=== PATIENT | male | born 1945 | race Caucasian/White ===

== ENCOUNTER → 2016-09-09 | Outpatient (CLI) | payer BC ==
[~2016-09-09] MED LIST: CLC100 PO; MULT-506 PO; OMEG10007 PO; OXYC-57 PO; OXYSR10 PO; SENN-61 PO; VGRUNK; [UNRECOGNIZED DRUG - CODE] TOP; acidophilus
[2016-09-09 13:07] LABS: ALT/SGPT 61 U/L (12-78); AST/SGOT 43 U/L (15-37); BLOOD UREA NITROGEN 15 mg/dl (7-18); CALCIUM 8.5 mg/dl (8.5-10.1); CARBON DIOXIDE 27 mmol/L (21-32); CHLORIDE 108 mmol/L (98-107); CREATININE 0.98 mg/dl (0.60-1.40); GLUCOSE 147 mg/dl (70-99); POTASSIUM 4.4 mmol/L (3.5-5.1); SODIUM 141 mmol/L (136-145)
[2016-09-09 13:10] LABS: ALB/GLOB RATIO 0.9 (0.9-2); ALKALINE PHOSPHATASE 82 U/L (45-117); CHOLESTEROL 218 mg/dl (0-200); CHOLESTEROL/HDL RATIO 5.5; ESTIMATED AVERAGE GLUCOSE 140 mg/dl; HA1C FLAG Normal (Normal); HDL CHOLESTEROL 40 mg/dl; LDL CHOLESTEROL CALCULATED 144 mg/dl; TRIGLYCERIDES 169 mg/dl (0-150); VERY LOW DENSITY LIPOPROT CALC 34 mg/dl
== END | disposition home or self-care (01) ==
LOC: C.LABPVFM 08:18
PROVIDERS: ATTEND Nurse Practitioner Family
DX: R73.01 Impaired fasting glucose (principal); E78.5 Hyperlipidemia, unspecified

== ENCOUNTER → 2016-12-23 | Outpatient (CLI) | payer BC ==
--- NOTE | 2016-12-23 09:33 | DIAGNOSTIC IMAGING REPORT ---
RIGHT HEEL MIN 2 VIEWS CLINICAL HISTORY: Right heel pain COMPARISON: None. DISCUSSION: There are no acute fractures. There is Achilles insertional spurring with calcification of the distal Achilles tendon. There is plantar calcaneal spurring. No destructive lesions are visualized. IMPRESSION: 1. No acute fractures 2. Calcaneal spurring. Calcification of the distal Achilles tendon may indicate an Achilles tendinopathy Electronically signed by: Tutu Stephenson M.D. 12/23/2016 9:31 AM Dictated Date/Time: 12/23/2016 9:31 AM
== END | disposition home or self-care (01) ==
LOC: C.RDSM 13:15
PROVIDERS: ATTEND Physician Assistant
DX: M79.671 Pain in right foot (principal); M77.31 Calcaneal spur, right foot; M25.871 Other specified joint disorders, right ankle and foot

== ENCOUNTER → 2017-02-19 | Outpatient (CLI) | payer BC ==
[2017-02-19 13:12] LABS: ALT/SGPT 63 U/L (12-78); AST/SGOT 47 U/L (15-37); BLOOD UREA NITROGEN 16 mg/dl (7-18); CALCIUM 8.6 mg/dl (8.5-10.1); CARBON DIOXIDE 26 mmol/L (21-32); CHLORIDE 107 mmol/L (98-107); CREATININE 0.97 mg/dl (0.60-1.40); GLUCOSE 136 mg/dl (70-99); POTASSIUM 4.3 mmol/L (3.5-5.1); SODIUM 139 mmol/L (136-145)
[2017-02-19 13:14] LABS: ALKALINE PHOSPHATASE 76 U/L (45-117); CHOLESTEROL 211 mg/dl (0-200); CHOLESTEROL/HDL RATIO 5.9; HDL CHOLESTEROL 36 mg/dl; LDL CHOLESTEROL CALCULATED 138 mg/dl; TRIGLYCERIDES 187 mg/dl (0-150); VERY LOW DENSITY LIPOPROT CALC 37 mg/dl
[2017-02-19 13:17] LABS: ESTIMATED AVERAGE GLUCOSE 140 mg/dl; HA1C FLAG Normal (Normal)
== END | disposition home or self-care (01) ==
LOC: C.LABPVFM 08:24
PROVIDERS: ATTEND Nurse Practitioner Family
DX: E11.9 Type 2 diabetes mellitus without complications (principal); E78.5 Hyperlipidemia, unspecified

== ENCOUNTER → 2017-02-19 | Outpatient (CLI) | payer BC | END | disposition home or self-care (01) | LOC: C.RDSM 09:30 | PROVIDERS: ATTEND Physical Medicine & Rehabilitation Sports Medicine | DX: M17.12 Unilateral primary osteoarthritis, left knee (principal) ==

== ENCOUNTER 2017-06-20 21:26 | Emergency (ER) | payer BC, OTHER ==
[~2017-06-20] VITALS: Ht 185.4 cm; Wt 137.9 kg
[2017-06-20 21:30] VITALS: TEMP 36.8; Ht 185.4 cm; Wt 137.9 kg
[2017-06-20 22:11] LABS: BASO % 0.4 %; BASO ABS # 0.03 K/uL (0-0.2); EOS % 0.4 %; EOS ABS # 0.03 K/uL (0-0.5); HEMATOCRIT 46.3 % (42-52); HEMOGLOBIN 16.2 g/dL (14.0-18.0); IG# 0.04 K/uL (0.00-0.02); LYMPH % 10.6 %; MEAN CELL VOLUME 86.7 fL (80-100); MEAN CORPUSCULAR HEMOGLOBIN 30.3 pg (25-34); MEAN PLATELET VOLUME 9.5 fL (7.4-10.4); MONO % 4.7 %; NEUT % 83.4 %; NEUT ABS # 7.09 K/uL (1.4-6.5); PLATELET COUNT 204 K/uL (130-400); RED CELL DISTRIBUTION WIDTH CV 13.9 % (11.5-14.5); RED CELL DISTRIBUTION WIDTH SD 43.9 fL (36.4-46.3); WHITE BLOOD COUNT 8.49 K/uL (4.8-10.8)
--- NOTE | 2017-06-20 22:19 | EMERGENCY ROOM VISIT NOTE ---
History Report prepared by Tosin: Dany Melo Under the Supervision of: Dr. Kevin Elena M.D. First contact with patient: 22:07 Chief Complaint: ABDOMINAL PAIN Stated Complaint: NAUSEA,VOMITING,SHARP ABDOMINAL PAIN Nursing Triage Summary: ate a rich meal at the [facility] and got abd pain with n/v. started at 1830. States also has hx of diverticulitis History of Present Illness The patient is a 72 year old male who presents to the Emergency Room with a history of diverticulitis with complaints of sudden onset of persistent abdominal pain that started around 4 hours ago. He states that the pain came on after finishing dinner, and the pain has been worst in the left lower quadrant. He adds that the pain has been constant, but has been slowly getting better. He describes the pain as a sharp pressure, and rates the pain at worst as an 8 out of 10 in severity. The patient says the pain is not changed with position. He says that when the pain came on, he felt sweaty and feverish. The patient states that he has 1 episode of vomiting without any blood. He says that he is not currently nauseous. The patient adds that he has had a decreased volume in his stool over the past few days, which is unusual for him. He denies any chest pain, shortness of breath, diarrhea, or hematochezia. The patient states that 2 days ago, he had sharp pain with urination. He notes no history of kidney stones. The patient has no history of abdominal surgeries. Source of History: patient Onset: 4 hours ago Position: abdomen Quality: pressure, sharp Timing: other (persistent) Associated Symptoms: + fevers (felt feverish), + diaphoresis, + nausea, + vomiting, + urinary symptoms, No chest pain, No SOB, No hematochezia, No diarrhea Note: Decreased volume of stool over past few days. Review of Systems See HPI for pertinent positives and negatives. A total of ten systems were reviewed and were otherwise negative. Past Medical & Surgical Medical Problems: (1) Diverticulitis (2) Osteoarthritis Family History Family history omitted secondary to patient's advanced age. Social History Smoking Status: Never Smoker Alcohol Use: occasionally Marital Status: Occupation Status: retired Current/Historical Medications Scheduled Calcium Carbonate (Tums), 2 TABS PO PRN Fish Oil ([place]-3), 2 CAP PO DAILY Lactobacillus (Acidophilus), 1 CAP PO DAILY Melatonin (Melatonin), 10 MG PO HS Sildenafil Citrate (Viagra), 100 MG PO PRN Tamsulosin HCl (Tamsulosin HCl), 1 CAP PO DAILY Testosterone (Androderm), 2 MG TOP Q24H Testosterone (Androderm), 4 MG TOP Q24H Scheduled PRN Azelastine Hcl (Astelin Nasal [place]), 1-2 SPRAYS NA BID PRN for Nasal Congestion Naproxen (Aleve), 220 MG PO QPM PRN for Pain Allergies Coded Allergies: No Known Allergies (Unverified , 10/24/10) Physical Exam Vital Signs Date Time Temp Pulse Resp B/P (MAP) Pulse Ox O2 Delivery O2 Flow Rate FiO2 06/21/17 00:58 81 18 147/87 96 06/20/17 23:08 77 18 151/92 94 Room Air 06/20/17 21:30 36.8 71 18 190/99 92 Room Air Physical Exam GENERAL: Awake, alert, uncomfortable-appearing, in no distress HENT: Normocephalic, atraumatic. Oropharynx unremarkable. EYES: Normal conjunctiva. Sclera non-icteric. NECK: Supple. No nuchal rigidity. FROM. No JVD. RESPIRATORY: Clear to auscultation. CARDIAC: Regular rate, normal rhythm. Extremities warm and well perfused. Pulses equal. ABDOMEN: Soft, non-distended. Mild tenderness in the left flank, left lower quadrant, and suprapubic areas, no peritoneal signs. No rebound or guarding. No masses. RECTAL: Deferred. MUSCULOSKELETAL: Chest examination reveals no tenderness. The back is symmetrical on inspection without obvious abnormality. Mild tenderness in the left CVA. No joint edema. LOWER EXTREMITIES: Calves are equal size bilaterally and non-tender. No edema. No discoloration. NEURO: Normal sensorium. No sensory or motor deficits noted. SKIN: No rash or jaundice noted. Medical Decision & Procedures ER Provider Diagnostic Interpretation: CT: Radiology results as stated below per my review and radiologist interpretation CT ABDOMEN & PELVIS With Contrast: 2 mm proximal left ureteral stone with [id number] left hydronephrosis, perinephric stranding and edema. Mild degree of left nephrogram delay. Diverticulosis without diverticulitis. No bowel dilation or free air. Radiologist: Des Rome M.D. Laboratory Results 1/12/18 21:55 Red Blood Count 5.34, Mean Corpuscular Volume 86.7, Mean Corpuscular Hemoglobin 30.3, Mean Corpuscular Hemoglobin Concent 35.0, Mean Platelet Volume 9.5, Neutrophils (%) (Auto) 83.4, Lymphocytes (%) (Auto) 10.6, Monocytes (%) (Auto) 4.7, Eosinophils (%) (Auto) 0.4, Basophils (%) (Auto) 0.4, Neutrophils # (Auto) 7.09, Lymphocytes # (Auto) 0.90, Monocytes # (Auto) 0.40, Eosinophils # (Auto) 0.03, Basophils # (Auto) 0.03 06/20/17 21:55 Test 06/20/17 21:55 06/20/17 22:45 06/20/17 23:08 White Blood Count 8.49 K/uL (4.8-10.8) Red Blood Count 5.34 M/uL (4.7-6.1) Hemoglobin 16.2 g/dL (14.0-18.0) Hematocrit 46.3 % (42-52) Mean Corpuscular Volume 86.7 fL (80-100) Mean Corpuscular Hemoglobin 30.3 pg (25-34) Mean Corpuscular Hemoglobin Concent 35.0 g/dl (32-36) Platelet Count 204 K/uL (130-400) Mean Platelet Volume 9.5 fL (7.4-10.4) Neutrophils (%) (Auto) 83.4 % Lymphocytes (%) (Auto) 10.6 % Monocytes (%) (Auto) 4.7 % Eosinophils (%) (Auto) 0.4 % Basophils (%) (Auto) 0.4 % Neutrophils # (Auto) 7.09 K/uL (1.4-6.5) Lymphocytes # (Auto) 0.90 K/uL (1.2-3.4) Monocytes # (Auto) 0.40 K/uL (0.11-0.59) Eosinophils # (Auto) 0.03 K/uL (0-0.5) Basophils # (Auto) 0.03 K/uL (0-0.2) RDW Standard Deviation 43.9 fL (36.4-46.3) RDW Coefficient of Variation 13.9 % (11.5-14.5) Immature Granulocyte % (Auto) 0.5 % Immature Granulocyte # (Auto) 0.04 K/uL (0.00-0.02) Anion Gap 9.0 mmol/L (3-11) Est Creatinine Clear Calc Drug Dose 97.3 ml/min Estimated GFR () 84.9 Estimated GFR (Non- 73.3 BUN/Creatinine Ratio 13.2 (10-20) Calcium Level 8.8 mg/dl (8.5-10.1) Total Bilirubin 0.4 mg/dl (0.2-1) Aspartate Amino Transf (AST/SGOT) 41 U/L (15-37) Alanine Aminotransferase (ALT/SGPT) 67 U/L (12-78) Alkaline Phosphatase 78 U/L (45-117) Total Protein 7.6 gm/dl (6.4-8.2) Albumin 3.8 gm/dl (3.4-5.0) Globulin 3.8 gm/dl (2.5-4.0) Albumin/Globulin Ratio 1.0 (0.9-2) Lipase 293 U/L (73-393) Urine Color YELLOW Urine Appearance CLEAR (CLEAR) Urine pH 7.0 (4.5-7.5) Urine Specific [place] 1.015 (1.000-1.030) Urine Protein NEG (NEG) Urine Glucose (UA) NEG (NEG) Urine Ketones NEG (NEG) Urine Occult Blood 3+ (NEG) Urine Nitrite NEG (NEG) Urine Bilirubin NEG (NEG) Urine Urobilinogen NEG (NEG) Urine Leukocyte Esterase NEG (NEG) Urine WBC (Auto) 0 /hpf (0-5) Urine RBC (Auto) >30 /hpf (0-4) Urine Hyaline Casts (Auto) 1-5 /lpf (0-5) Urine Epithelial Cells (Auto) 0-5 /lpf (0-5) Urine Bacteria (Auto) NEG (NEG) Lactic Acid Level 1.6 mmol/L (0.4-2.0) Laboratory results reviewed by me Medications Administered Medications (Trade) Dose Ordered Sig/Jumana Route Start Time Stop Time Status Last Admin Dose Admin Sodium Chloride 1,000 ml @ 999 mls/hr Q1H1M IV 06/20/17 22:45 06/21/17 01:12 DC 06/20/17 23:46 999 MLS/HR Ketorolac Tromethamine (Toradol Inj) 30 mg STK-MED ONCE .ROUTE 06/20/17 22:43 06/20/17 22:44 DC 06/20/17 22:46 15 MG Ondansetron HCl (Zofran Inj) 4 mg NOW STAT IV 06/20/17 23:15 06/20/17 23:21 DC 06/20/17 23:26 4 MG Fentanyl Citrate (Fentanyl Inj) 50 mcg NOW ONCE IV 06/20/17 23:15 06/20/17 23:21 DC 06/20/17 23:27 50 MCG Ondansetron HCl (ZOFRAN ODT 4MG Home Pack) 1 homepack STK-MED ONCE .ROUTE 06/21/17 00:47 06/21/17 00:48 DC 06/21/17 00:53 1 HOMEPACK Oxycodone HCl (Roxicodone Immediate Rel 5MG Home Pack) 1 homepack STK-MED ONCE PO 06/21/17 00:47 06/21/17 00:48 DC 06/21/17 00:53 1 HOMEPACK ED Course 2214: The patient was evaluated in room C6 by the resident, Dr. Doran. A complete history and physical exam was performed. 2247: The patient was evaluated in room C6. A complete history and physical exam was performed. 0045: The patient was reevaluated and he is resting comfortably. Discussed results and discharge instructions: he verbalized understanding and agreement. The patient is ready for discharge. Medical Decision I reviewed the patient's past medical history, medications, and the nursing notes as described above. Differential diagnosis: Etiologies such as appendicitis, diverticulitis, PUD, biliary pathology, UTI, pancreatitis, obstruction, mesenteric ischemia, aortic pathology, infections, inflammatory bowel disease, renal colic, as well as others were entertained. The patient is 72 y/o gentleman with a pmhx of diverticulitis who presents to the emergency department with left flank pain occurring earlier today with associated n/v per HPI. On arrival the patient is uncomfortable but in NAD, AFVSS. Mild left flank, LLQ ttp. No peritoneal signs. Labs unremarkable including wbc and lactate wnl and UA negative for infection. CT demonstrates 2mm renal stone with associated hydronephrosis likely cause of patient's sx. Improved after IVF and analgesia. Findings and plan for follow-up reviewed with patient. Patient agreeable and d/c'd per discharge instructions. I discussed the case with the resident physician, examined the patient, and agree with the findings and plan as documented in the residents note unless otherwise clarified here by me. Medication Reconcilliation Current Medication List: was personally reviewed by me Blood Pressure Screening Patient's blood pressure: Elevated blood pressure Blood pressure disposition: Elevated BP felt to be situational Impression Primary Impression: Kidney stone on left side Scribe Attestation The scribe's documentation has been prepared under my direction and personally reviewed by me in its entirety. I confirm that the note above accurately reflects all work, treatment, procedures, and medical decision making performed by me. Departure Information Dispostion Home / Self-Care Prescriptions Tamsulosin HCl (Tamsulosin HCl) 0.4 Mg Cap 1 CAP PO DAILY for 7 Days, #7 CAP Prov: Freddy Doran M.D. 06/21/17 Referrals No Doctor, Assigned (PCP) Patient Instructions My [facility] Additional Instructions You came to [facility] emergency department due to left sided abdominal pain, nausea and vomiting. We checked a number of blood tests, including the function of your liver, pancreas and kidneys. These all came back normal. Your CT scan showed that you have a 2mm left sided kidney stone. We have prescribed a medication called tamsulosin, to help relax the ureteral muscle and aid in passing the stone. We recommend you drink plenty of fluids - 1/2 ounce to 1 ounce per kg per day to help flush out the stone. We have also prescribed zofran and some pain medication to help with your symptoms in the meantime. Please follow up with your primary care doctor. If you experience worsening pain , fever, chills, worsening nausea and vomiting, please seek medical attention.
[2017-06-20 22:32] LABS: ALBUMIN 3.8 gm/dl (3.4-5.0); CALCIUM 8.8 mg/dl (8.5-10.1); CREATININE 1.03 mg/dl (0.60-1.40); POTASSIUM 3.8 mmol/L (3.5-5.1)
[2017-06-20] MEDS ORDERED: TEST1DIS TOP (22:32)
[2017-06-20] MEDS ORDERED: NAPR1TAB9 PO (22:32)
[2017-06-20] MEDS ORDERED: SILD100T PO (22:32)
[2017-06-20] MEDS ORDERED: TEST0.05 TOP (22:32)
[2017-06-20] MEDS ORDERED: LACTCAP3 PO (22:32)
[2017-06-20] MEDS ORDERED: ASTN (22:32)
[2017-06-20] MEDS ORDERED: OMEG10007 PO (22:32)
[2017-06-20] MEDS ORDERED: CALC500C3 PO (22:32)
[2017-06-20] MEDS ORDERED: MELA5CAP PO (22:32)
[2017-06-20 22:35] LABS: TOTAL PROTEIN 7.6 gm/dl (6.4-8.2)
[2017-06-20] MEDS ORDERED: KETOROLAC TROMETHAMINE 30 MG/ML VIAL ONE (22:43)
[2017-06-20] MEDS ORDERED: OPTIRAY 320 IV PRN (22:45)
[2017-06-20] MEDS: SODIUM CHLORIDE 0.9% 1000ML 1,000 ML IV SCH ×2 (22:45→23:46)
[2017-06-20] MEDS ORDERED: KETOROLAC TROMETHAMINE 15 MG/ML VIAL IV ONE (22:45)
--- NOTE | 2017-06-20 22:47 | EMERGENCY ROOM VISIT NOTE ---
History First contact with patient: 22:07 Chief Complaint: ABDOMINAL PAIN Stated Complaint: NAUSEA,VOMITING,SHARP ABDOMINAL PAIN Nursing Triage Summary: ate a rich meal at the [employer] and got abd pain with n/v. started at 1830. States also has hx of diverticulitis History of Present Illness The patient is a 72 year old male who presents to the Emergency Room with complaints of sudden onset LLQ pain that began at 1830 after he finished his dinner. He reports the pain is a sharp constant pressure, that is 8.5/10 in severity, and radiating to his left flank. He notes the pain has improved slightly since its onset. When the pain began, he notes he was sweating and felt feverish, and that he also had an episode of vomiting undigested food, no blood. He denies any relation of the pain to position. His LBM was this morning , although he states that today and yesterday his BMs have been smaller in volume than normal. He denies the presence of blood in his stool. He has a history of diverticulitis, with his last episode occurring 20 years ago. He denies CP, SOB, past abdominal surgeries, or kidney stones. He states 2 days ago, he had a sharp painful sensation whilst urinating, but has not had any problems since. Review of Systems See HPI for pertinent positives & negatives. A total of 10 systems reviewed and were otherwise negative. Past Medical/Surgical History Medical Problems: (1) Diverticulitis (2) Osteoarthritis Social History Smoking Status: Never Smoker Alcohol Use: occasionally Marital Status: Occupation Status: retired Current/Historical Medications Scheduled Calcium Carbonate (Tums), 2 TABS PO PRN Fish Oil ([place]-3), 2 CAP PO DAILY Lactobacillus (Acidophilus), 1 CAP PO DAILY Melatonin (Melatonin), 10 MG PO HS Sildenafil Citrate (Viagra), 100 MG PO PRN Tamsulosin HCl (Tamsulosin HCl), 1 CAP PO DAILY Testosterone (Androderm), 2 MG TOP Q24H Testosterone (Androderm), 4 MG TOP Q24H Scheduled PRN Azelastine Hcl (Astelin Nasal [place]), 1-2 SPRAYS NA BID PRN for Nasal Congestion Naproxen (Aleve), 220 MG PO QPM PRN for Pain Physical Exam Vital Signs Date Time Temp Pulse Resp B/P (MAP) Pulse Ox O2 Delivery O2 Flow Rate FiO2 1/12/18 23:08 77 18 151/92 94 Room Air 06/20/17 21:30 36.8 71 18 190/99 92 Room Air Physical Exam HEENT: Head - normocephalic and atraumatic. Mouth - dry buccal mucosa. Oropharynx is nonerythematous and there is no tonsillar exudate or edema noted. Neck: Supple; no JVD, nuchal rigidity, cervical lymphadenopathy, or auscultated bruits. Heart: Regular rate and rhythm. There is a normal S1 and S2 with no murmurs, clicks, or gallops appreciated. Lungs: Clear to auscultation bilaterally with no wheezes, rales, or rhonchi. Abdomen: Soft, tender over LLQ and flank, distended, with good bowel sounds. There are no palpable pulsatile masses or hepatosplenomegaly. There is no guarding, rigidity, or rebound noted. Extremities: No evidence of cyanosis, clubbing, or edema. There are easily palpable peripheral pulses. Neuro:The patient is awake and alert, oriented to day, time, and place. Medical Decision & Procedures Laboratory Results 06/20/17 21:55 Red Blood Count 5.34, Mean Corpuscular Volume 86.7, Mean Corpuscular Hemoglobin 30.3, Mean Corpuscular Hemoglobin Concent 35.0, Mean Platelet Volume 9.5, Neutrophils (%) (Auto) 83.4, Lymphocytes (%) (Auto) 10.6, Monocytes (%) (Auto) 4.7, Eosinophils (%) (Auto) 0.4, Basophils (%) (Auto) 0.4, Neutrophils # (Auto) 7.09, Lymphocytes # (Auto) 0.90, Monocytes # (Auto) 0.40, Eosinophils # (Auto) 0.03, Basophils # (Auto) 0.03 06/20/17 21:55 Test 06/20/17 21:55 06/20/17 22:45 06/20/17 23:08 White Blood Count 8.49 K/uL (4.8-10.8) Red Blood Count 5.34 M/uL (4.7-6.1) Hemoglobin 16.2 g/dL (14.0-18.0) Hematocrit 46.3 % (42-52) Mean Corpuscular Volume 86.7 fL (80-100) Mean Corpuscular Hemoglobin 30.3 pg (25-34) Mean Corpuscular Hemoglobin Concent 35.0 g/dl (32-36) Platelet Count 204 K/uL (130-400) Mean Platelet Volume 9.5 fL (7.4-10.4) Neutrophils (%) (Auto) 83.4 % Lymphocytes (%) (Auto) 10.6 % Monocytes (%) (Auto) 4.7 % Eosinophils (%) (Auto) 0.4 % Basophils (%) (Auto) 0.4 % Neutrophils # (Auto) 7.09 K/uL (1.4-6.5) Lymphocytes # (Auto) 0.90 K/uL (1.2-3.4) Monocytes # (Auto) 0.40 K/uL (0.11-0.59) Eosinophils # (Auto) 0.03 K/uL (0-0.5) Basophils # (Auto) 0.03 K/uL (0-0.2) RDW Standard Deviation 43.9 fL (36.4-46.3) RDW Coefficient of Variation 13.9 % (11.5-14.5) Immature Granulocyte % (Auto) 0.5 % Immature Granulocyte # (Auto) 0.04 K/uL (0.00-0.02) Anion Gap 9.0 mmol/L (3-11) Est Creatinine Clear Calc Drug Dose 97.3 ml/min Estimated GFR () 84.9 Estimated GFR (Non- 73.3 BUN/Creatinine Ratio 13.2 (10-20) Calcium Level 8.8 mg/dl (8.5-10.1) Total Bilirubin 0.4 mg/dl (0.2-1) Aspartate Amino Transf (AST/SGOT) 41 U/L (15-37) Alanine Aminotransferase (ALT/SGPT) 67 U/L (12-78) Alkaline Phosphatase 78 U/L (45-117) Total Protein 7.6 gm/dl (6.4-8.2) Albumin 3.8 gm/dl (3.4-5.0) Globulin 3.8 gm/dl (2.5-4.0) Albumin/Globulin Ratio 1.0 (0.9-2) Lipase 293 U/L (73-393) Urine Color YELLOW Urine Appearance CLEAR (CLEAR) Urine pH 7.0 (4.5-7.5) Urine Specific [place] 1.015 (1.000-1.030) Urine Protein NEG (NEG) Urine Glucose (UA) NEG (NEG) Urine Ketones NEG (NEG) Urine Occult Blood 3+ (NEG) Urine Nitrite NEG (NEG) Urine Bilirubin NEG (NEG) Urine Urobilinogen NEG (NEG) Urine Leukocyte Esterase NEG (NEG) Urine WBC (Auto) 0 /hpf (0-5) Urine RBC (Auto) >30 /hpf (0-4) Urine Hyaline Casts (Auto) 1-5 /lpf (0-5) Urine Epithelial Cells (Auto) 0-5 /lpf (0-5) Urine Bacteria (Auto) NEG (NEG) Lactic Acid Level 1.6 mmol/L (0.4-2.0) Medications Administered Medications (Trade) Dose Ordered Sig/Jumana Route Start Time Stop Time Status Last Admin Dose Admin Sodium Chloride 1,000 ml @ 999 mls/hr Q1H1M IV 06/20/17 22:45 07/20/17 22:44 06/20/17 23:46 999 MLS/HR Ketorolac Tromethamine (Toradol Inj) 30 mg STK-MED ONCE .ROUTE 06/20/17 22:43 06/20/17 22:44 DC 06/20/17 22:46 15 MG Ondansetron HCl (Zofran Inj) 4 mg NOW STAT IV 06/20/17 23:15 06/20/17 23:21 DC 06/20/17 23:26 4 MG Fentanyl Citrate (Fentanyl Inj) 50 mcg NOW ONCE IV 06/20/17 23:15 06/20/17 23:21 DC 06/20/17 23:27 50 MCG ED Course 22:15: The patient was evaluated in room C6. A complete history and physical exam was performed. 22:30: The case was discussed with the attending, Dr. Elena. 22:36: 15mg IV Toradol and 1L IV NS bolus ordered 23:22: 4mg IV Zofran and 50mcg IV fentanyl ordered 23:38: Patient was reassessed. He states his pain and nausea are improving. 00:30: The CT scan findings were discussed with the patient. His and his 's questions were answered. They were agreeable to discharge w/zofran and oxycodone home packs. Medical Decision Etiologies such as diverticulitis, ischemic colitis, gastroenteritis, inflammatory bowel disease, malignancy, kidney stone, UTI, gastritis, as well as others were entertained. The patient is a 72 year old male who presents to the Emergency Room with complaints of sudden onset LLQ pain that began at 1830 after he finished his dinner. His CBC, CMP and lipase were unremarkable. UA did show the presence of blood, but no signs of infection. His CT scan revealed a 2mm proximal left ureteral stone with mild to moderate left hydronephrosis, perinephric stranding and edema. He was treated with IV fluids, toradol and fentanyl for pain relief and zofran for nausea. His CT findings were discussed with him and he was discharged home and counselled on following up with his PCP. His stone is not very large, but given the obstruction, he was prescribed tamsulosin to help with passing the stone, and also counselled on drinking plenty of fluids. He was given a zofran and oxycodone home pack as well. Impression Primary Impression: Kidney stone on left side Departure Information Dispostion Home / Self-Care Prescriptions Tamsulosin HCl (Tamsulosin HCl) 0.4 Mg Cap 1 CAP PO DAILY for 7 Days, #7 CAP Prov: Freddy Doran M.D. 06/21/17 Referrals No Doctor, Assigned (PCP) Patient Instructions My [facility] Additional Instructions You came to [facility] emergency department due to left sided abdominal pain, nausea and vomiting. We checked a number of blood tests, including the function of your liver, pancreas and kidneys. These all came back normal. Your CT scan showed that you have a 2mm left sided kidney stone. We have prescribed a medication called tamsulosin, to help relax the ureteral muscle and aid in passing the stone. We recommend you drink plenty of fluids - 1/2 ounce to 1 ounce per kg per day to help flush out the stone. We have also prescribed zofran and some pain medication to help with your symptoms in the meantime. Please follow up with your primary care doctor. If you experience worsening pain , fever, chills, worsening nausea and vomiting, please seek medical attention. Resident Tracking Resident Involvement: Resident Care Provided Care Provided: Adult ED
[2017-06-20] MEDS ORDERED: ONDANSETRON INJ 2 MG/ML 2 ML VIAL IV STA (23:15)
[2017-06-20] MEDS ORDERED: FENTANYL CITRATE INJ 50 MCG/1 ML 2 ML VIAL IV ONE (23:15)
[2017-06-21] MEDS ORDERED: FLM4 PO ×2 (00:34→00:39)
[2017-06-21] MEDS ORDERED: OXYCODONE IR HOME PACK PO ONE ×2 (00:45→00:47)
[2017-06-21] MEDS ORDERED: ONDANSETRON HOME PACK 4MG OD TAB PO ONE (00:45)
[2017-06-21] MEDS ORDERED: ONDANSETRON HOME PACK 4MG OD TAB ONE (00:47)
[2017-06-21 00:58] VITALS: BP 147/87; PULSE 81; O2SAT 96
--- NOTE | 2017-06-21 05:26 | DIAGNOSTIC IMAGING REPORT ---
ABD/PELVIS IV CONTRAST ONLY CT DOSE: 1613.00 mGy.cm HISTORY: Pain llq pain, hx of diverticulitis TECHNIQUE: Multiaxial CT images of the abdomen and pelvis were performed following the use of intravenous contrast. A dose lowering technique was utilized adhering to the principles of ALARA. COMPARISON STUDY: None. FINDINGS: The lung bases are clear. The liver, spleen, gallbladder, pancreas,, and adrenal glands are within normal limits. No bowel wall thickening or obstruction. The pelvic organs are unremarkable. No suspicious lytic or blastic osseous lesions. Mild left hydroureteronephrosis. 2 mm proximal left ureteral calculus. Chronic sigmoid diverticulosis. No evidence for acute diverticulitis. IMPRESSION: 1. 2 mm obstructing calculus proximal left ureter.. 2. Mild left hydroureteronephrosis. 3. Chronic sigmoid diverticulosis. The above report was generated using voice recognition software. It may contain grammatical, syntax or spelling errors. Electronically signed by: Tray Watson M.D. 06/21/2017 5:24 AM Dictated Date/Time: 06/21/2017 5:23 AM
== END 2017-06-21 00:59 | disposition home or self-care (01) ==
LOC: C.EDB 21:29 → C.EDC 06-21 00:59
DX: N13.1 Hydronephrosis with ureteral stricture, not elsewhere classified (principal); K57.92 Diverticulitis of intestine, part unspecified, without perforation or abscess without bleeding; M19.90 Unspecified osteoarthritis, unspecified site; Z79.899 Other long term (current) drug therapy

== ENCOUNTER → 2017-06-26 | Outpatient (CLI) | payer OTHER ==
[~2017-06-26] MED LIST changes: +ASTN; +CALC500C3 PO; -CLC100 PO; +FLM4 PO; +LACTCAP3 PO; +MELA5CAP PO; -MULT-506 PO; +NAPR1TAB9 PO; -OXYC-57 PO; -OXYSR10 PO; -SENN-61 PO; +SILD100T PO; +TEST0.05 TOP; +TEST1DIS TOP; -VGRUNK; -[UNRECOGNIZED DRUG - CODE] TOP; -acidophilus
== END | disposition home or self-care (01) ==
LOC: C.LABPVFM 09:03
PROVIDERS: ATTEND Nurse Practitioner Family
DX: N20.0 Calculus of kidney (principal)

== ENCOUNTER 2021-09-03 15:40 | Inpatient (IN) ==
[2021-09-03] MEDS ORDERED: SODIUM CHLORIDE 0.9% 1000ML 1,000 ML IV ONE (16:12)
[2021-09-03] MEDS ORDERED: OPTIRAY 320 100ml IV ONE (16:36)
[2021-09-03 16:37] LABS: Basophils # (auto) 0.02 K/uL (0-0.2); Basophils % (auto) 0.2 %; Eosinophils # (auto) 0.01 K/uL (0-0.5); Eosinophils % (auto) 0.1 %; Hematocrit (blood only) 37.7 % (42-52); Hemoglobin 12.9 g/dL (14.0-18.0); Immature Granulocytes # (auto) 0.03 K/uL (0.00-0.02); Immature Granulocytes % (auto) 0.3 %; Lymphocytes # (auto) 0.82 K/uL (1.2-3.4); Lymphocytes % (auto) 9.5 %; Mean Corpuscular Hgb Conc 34.2 g/dL (32-36); Mean Platelet Volume 11.3 fL (7.4-10.4); Monocytes # (auto) 0.63 K/uL (0.11-0.59); Monocytes % (auto) 7.3 %; Neutrophils % (auto) 82.6 %; Platelet Count 233 K/uL (130-400); RDW Coefficient of Variation 15.3 % (11.5-14.5); RDW Standard Deviation 45.9 fL (36.4-46.3); White Blood Count 8.61 K/uL (4.8-10.8)
--- NOTE | 2021-09-03 16:44 | Emergency Department Note ---
Impression & Plan Pancreatic mass, Elevated bilirubin, Transaminitis, Acute hyperglycemia ED Provider Note NAME: CHAMP VILLARREAL AGE: 76 SEX: M : 1945 ARRIVES VIA: Walk-In INFORMANT: Patient ED PROVIDER(S): Russell Smith DO CHIEF COMPLAINT: elevated Lfts and Bilirubin HPI: Patient is a 76-year-old male with a past medical history of aortic stenosis, heart murmur, diabetes, hyperlipidemia who presents the ER for abdominal pain. Patient started with epigastric abdominal pain back in June. Was placed on meloxicam and had worsening symptoms and blood in the stool. Meloxicam was stopped. He had about a 30 pound weight loss. has noticed that he has become more jaundiced over the past month. Still has the epigastric abdominal pain but bright red blood per rectum has resolved. Denies any headache or change in vision. No chest pain or shortness of breath. No nausea, vomiting, or diarrhea. No dysuria, urgency, or frequency. Has an extensive family history of gastric cancer. ROS: See above HPI for pertinent positives & negatives. A total of 10 systems reviewed and were otherwise negative. PAST MEDICAL HISTORY:See Below PAST SURGICAL HISTORY:See Below FAMILY HISTORY:See Below SOCIAL HISTORY:See Below HOME MEDICATIONS:See Below ALLERGIES:See Below VITALS:See Below PHYSICAL EXAMINATION: GENERAL: Sitting up in bed, alert, well appearing, well nourished, no distress, non-toxic EYE EXAM: normal conjunctiva. OROPHARYNX: mucous membranes are moist LUNGS: Clear to auscultation. Normal chest wall mechanics HEART: no murmurs, S1 normal and S2 normal ABDOMEN: abdomen soft, non-tender, normo-active bowel sounds, no masses, no rebound or guarding. UPPER EXTREMITIES: upper extremities are grossly normal. LOWER EXTREMITIES: No pitting edema. NEURO EXAM: Normal sensorium, cranial nerves II-XII grossly intact, normal speech, no gross weakness of arms, no gross weakness of legs. MEDICAL DECISION MAKING: Patient is a 76-year-old male who presents the ER for the above-stated complaint. IV was established blood was obtained. Labs show no significant leukocytosis and mild anemia 12.9. INR was 1.3. BMP with a glucose of 580. LFTs with a transaminitis in 203 100. T bili up at 8.5. Lipase was unremarkable. UA with bilirubin. CT abdomen pelvis was obtained and showed a large pancreatic mass with metastatic disease to the liver. Discussed with Dr. Stratton from [facility]. He does not perform stenting and recommended discussed with case here. Discussed with Abelardo Gurrola for admission. Triage Nursing notes reviewed. Limited review of prior medical records performed Vital Signs: reviewed and remarkable for HTN Differential diagnosis: Differential diagnoses includes but is not limited to gastritis, peptic ulcer disease, GERD, gallbladder disease, pancreatitis, small bowel obstruction, acute coronary syndrome, pericarditis, ischemic bowel, irritable bowel disease, irritable bowel syndrome, appendicitis, diverticulitis, malignancy, hernia, u rinary tract infection, torsion, /ectopic (if female), perforation, trauma, infectious. ER treatment provided: See below Diagnostics interpreted by me: ECG: none Cardiac Monitoring: An order was placed for continuous cardiac monitoring. The monitor shows a rate of 72 with sinus rhythm. Laboratory studies: As stated above and show below. Imaging studies: CT abdomen pelvis as described above Consultation(s): none Procedures: none Critical Care: None Past Med/Surg History Medical History (Updated 09/03/21 @ 19:40 by Russell Smith DO) Heart murmur Lumbar facet arthropathy Surgical History Hx of total knee replacement Family History Father Prostate cancer Myocardial infarction Denies family history of Ovarian cancer Breast cancer Colorectal cancer Social History Smoking Status: Never smoker Second Hand Exposure: No; Hx Alcohol Use: No Hx Substance Use: No Preferred Language: Hungarian Communication Ability: Effective Visual Impairment: No Limitations Hearing Ability: Normal Ambulance Mechanic Required: No Beliefs That Will Affect Care: None marital status: Current Living Situation: Spouse current occupational status: retired Other Information That Helps Us Care for You: No Feels Safe at Home: Yes Safety Concerns: Feels Safe At This Time Childhood Exposure to Second-Hand Smoke: No caffeine: Yes (Pepsi) Dental Care, Regularly: Yes Physical Activity Frequency: 1-2 Times per Week Seatbelt Use: always Sunscreen Use: No Assistive Devices: Glasses Allergies Allergies Allergy/AdvReac Type Severity Reaction Status Date / Time No Known Allergies Allergy Verified 09/03/21 16:25 Home Meds Home Medications Medication Instructions Recorded Confirmed omega-3 fatty acids 1,000 mg 2,000 mg PO HS cap 03/02/19 09/03/21 capsule (Fish Oil Concentrate) ascorbic acid (vitamin C) 500 mg 500 mg PO HS tab 10/04/20 09/03/21 tablet (Vitamin C) cholecalciferol (vitamin D3) 25 25 mcg PO HS cap 10/04/20 09/03/21 mcg (1,000 unit) capsule (Vitamin D3) acetaminophen 650 mg 650 mg PO DAILY PRN tab 05/31/21 09/03/21 tablet,extended release (Tylenol Arthritis Pain) azelastine 137 mcg (0.1 %) nasal 1 spray INTRANASAL BID PRN 09/03/21 09/03/21 spray aerosol Previous Rx's Medication Instructions Recorded metformin 500 mg tablet,extended 500 mg PO BID #60 tab 02/19/21 release 24 hr testosterone 4 mg/24 hr 1 patch TD HS #30 ea 04/05/21 transdermal 24 hour patch atorvastatin 20 mg tablet 20 mg PO DAILY #90 tab 05/31/21 Results & Data (ED) Vital Signs Vital Signs - 24 hr 09/03/21 15:46 09/03/21 16:26 09/03/21 19:14 Temperature 36.7 C 36.9 C Temperature Source Temporal Artery Scan Oral Pulse Rate 81 85 Pulse Rate [Apical] 79 79 Pulse Rhythm Regular Regular Pulse Strength Normal Respiratory Rate 20 20 18 Respiratory Effort / Characteristics Non-Labored Spontaneous Respiratory Depth Normal Respiratory Pattern Regular Blood Pressure 152/96 H Blood Pressure [Right Arm] 158/92 H 141/81 H Blood Pressure Mean 114 Blood Pressure Mean [Right Arm] 114 101 Blood Pressure Position Sitting Pulse Oximetry 95 96 98 Oxygen Delivery Method Room Air Room Air Room Air Sepsis Recent Fever Within 48 Hours No Sepsis New/Unexplained Change in Mental Status N/A Sepsis Action Taken by Nursing No Action Required Laboratory Data Result diagrams: 09/03/21 16:22 09/03/21 16:22 Lab Results 09/03/21 09/03/21 09/03/21 Range/Units 16:14 16:22 16:22 WBC 8.61 (4.8-10.8) K/uL RBC 4.60 L (4.7-6.1) M/uL Hgb 12.9 L (14.0-18.0) g/dL Hct 37.7 L (42-52) % MCV 82.0 (80-100) fL MCH 28.0 (25-34) pg MCHC 34.2 (32-36) g/dL RDW Std Deviation 45.9 (36.4-46.3) fL RDW Coeff of Radhika 15.3 H (11.5-14.5) % Plt Count 233 (130-400) K/uL MPV 11.3 H (7.4-10.4) fL Immature Gran % (Auto) 0.3 % Neut % (Auto) 82.6 % Lymph % (Auto) 9.5 % [place] % (Auto) 7.3 % Eos % (Auto) 0.1 % Baso % (Auto) 0.2 % Neut # (Auto) 7.10 H (1.4-6.5) K/uL Lymph # (Auto) 0.82 L (1.2-3.4) K/uL [place] # (Auto) 0.63 H (0.11-0.59) K/uL Eos # (Auto) 0.01 (0-0.5) K/uL Baso # (Auto) 0.02 (0-0.2) K/uL Immature Gran # (Auto) 0.03 H (0.00-0.02) K/uL PT (9.0-12.0) Seconds INR (0.9-1.1) Sodium 132 L (136-145) mmol/L Potassium 3.7 (3.5-5.1) mmol/L Chloride 97 L (98-107) mmol/L Carbon Dioxide 23 (21-32) mmol/L Anion Gap 12 H (3-11) BUN 11 (6-23) mg/dl Creatinine 0.71 (0.6-1.4) mg/dl Est Cr Clr Drug Dosing 121.8 ml/min Est GFR ( Amer) 107.1 ml/min Est GFR (Non-Af Amer) 92.4 ml/min BUN/Creatinine Ratio 15.5 (10-20) Glucose 582 H* (70-99(Fasting)) mg/dl POC Glucose (70-99) mg/dl Calcium 9.1 (8.5-10.1) mg/dl Total Bilirubin 8.5 H (0.2-1.0) mg/dl AST 208 H (13-39) U/L ALT 314 H (7-52) U/L Alkaline Phosphatase 573 H (34-104) U/L Total Protein 6.3 (6.0-8.3) gm/dl Albumin 3.4 (3.4-5.0) gm/dl Globulin 2.9 (2.5-4.0) gm/dl Albumin/Globulin Ratio 1.2 (0.9-2) Lipase 62 (11-82) U/L Urine Color Dark Yellow Urine Appearance Clear (Clear) Urine pH 6.0 (4.5-7.5) Ur Specific [place] 1.040 H (1.000-1.030) Urine Protein Negative (Negative) Urine Glucose (UA) 3+ H (Negative) Urine Ketones 1+ H (Negative) Urine Blood Negative (Negative) Urine Nitrite Negative (Negative) Urine Bilirubin 1+ H (Negative) Urine Urobilinogen Negative (Negative) Ur Leukocyte Esterase Negative (Negative) SARS-CoV-2, RNA, NAAT (NEGATIVE) 09/03/21 09/03/21 09/03/21 Range/Units 16:22 16:56 17:47 WBC (4.8-10.8) K/uL RBC (4.7-6.1) M/uL Hgb (14.0-18.0) g/dL Hct (42-52) % MCV (80-100) fL MCH (25-34) pg MCHC (32-36) g/dL RDW Std Deviation (36.4-46.3) fL RDW Coeff of Radhika (11.5-14.5) % Plt Count (130-400) K/uL MPV (7.4-10.4) fL Immature Gran % (Auto) % Neut % (Auto) % Lymph % (Auto) % [place] % (Auto) % Eos % (Auto) % Baso % (Auto) % Neut # (Auto) (1.4-6.5) K/uL Lymph # (Auto) (1.2-3.4) K/uL [place] # (Auto) (0.11-0.59) K/uL Eos # (Auto) (0-0.5) K/uL Baso # (Auto) (0-0.2) K/uL Immature Gran # (Auto) (0.00-0.02) K/uL PT 13.3 H (9.0-12.0) Seconds INR 1.3 H (0.9-1.1) Sodium (136-145) mmol/L Potassium (3.5-5.1) mmol/L Chloride (98-107) mmol/L Carbon Dioxide (21-32) mmol/L Anion Gap (3-11) BUN (6-23) mg/dl Creatinine (0.6-1.4) mg/dl Est Cr Clr Drug Dosing ml/min Est GFR ( Amer) ml/min Est GFR (Non-Af Amer) ml/min BUN/Creatinine Ratio (10-20) Glucose (70-99(Fasting)) mg/dl POC Glucose 468 H* (70-99) mg/dl Calcium (8.5-10.1) mg/dl Total Bilirubin (0.2-1.0) mg/dl AST (13-39) U/L ALT (7-52) U/L Alkaline Phosphatase (34-104) U/L Total Protein (6.0-8.3) gm/dl Albumin (3.4-5.0) gm/dl Globulin (2.5-4.0) gm/dl Albumin/Globulin Ratio (0.9-2) Lipase (11-82) U/L Urine Color Urine Appearance (Clear) Urine pH (4.5-7.5) Ur Specific [place] (1.000-1.030) Urine Protein (Negative) Urine Glucose (UA) (Negative) Urine Ketones (Negative) Urine Blood (Negative) Urine Nitrite (Negative) Urine Bilirubin (Negative) Urine Urobilinogen (Negative) Ur Leukocyte Esterase (Negative) SARS-CoV-2, RNA, NAAT NEGATIVE (NEGATIVE) 09/03/21 Range/Units 18:36 WBC (4.8-10.8) K/uL RBC (4.7-6.1) M/uL Hgb (14.0-18.0) g/dL Hct (42-52) % MCV (80-100) fL MCH (25-34) pg MCHC (32-36) g/dL RDW Std Deviation (36.4-46.3) fL RDW Coeff of Radhika (11.5-14.5) % Plt Count (130-400) K/uL MPV (7.4-10.4) fL Immature Gran % (Auto) % Neut % (Auto) % Lymph % (Auto) % [place] % (Auto) % Eos % (Auto) % Baso % (Auto) % Neut # (Auto) (1.4-6.5) K/uL Lymph # (Auto) (1.2-3.4) K/uL [place] # (Auto) (0.11-0.59) K/uL Eos # (Auto) (0-0.5) K/uL Baso # (Auto) (0-0.2) K/uL Immature Gran # (Auto) (0.00-0.02) K/uL PT (9.0-12.0) Seconds INR (0.9-1.1) Sodium (136-145) mmol/L Potassium (3.5-5.1) mmol/L Chloride (98-107) mmol/L Carbon Dioxide (21-32) mmol/L Anion Gap (3-11) BUN (6-23) mg/dl Creatinine (0.6-1.4) mg/dl Est Cr Clr Drug Dosing ml/min Est GFR ( Amer) ml/min Est GFR (Non-Af Amer) ml/min BUN/Creatinine Ratio (10-20) Glucose (70-99(Fasting)) mg/dl POC Glucose 392 H* (70-99) mg/dl Calcium (8.5-10.1) mg/dl Total Bilirubin (0.2-1.0) mg/dl AST (13-39) U/L ALT (7-52) U/L Alkaline Phosphatase (34-104) U/L Total Protein (6.0-8.3) gm/dl Albumin (3.4-5.0) gm/dl Globulin (2.5-4.0) gm/dl Albumin/Globulin Ratio (0.9-2) Lipase (11-82) U/L Urine Color Urine Appearance (Clear) Urine pH (4.5-7.5) Ur Specific [place] (1.000-1.030) Urine Protein (Negative) Urine Glucose (UA) (Negative) Urine Ketones (Negative) Urine Blood (Negative) Urine Nitrite (Negative) Urine Bilirubin (Negative) Urine Urobilinogen (Negative) Ur Leukocyte Esterase (Negative) SARS-CoV-2, RNA, NAAT (NEGATIVE) Administered Medications Discontinued Medications Sodium Chloride (Nss 1000ml) 1,000 mls @ 999 mls/hr IV .Q1H1M ONE Stop: 09/03/21 17:12 Last Infusion: 09/03/21 18:40 Dose: 0 mls/hr Documented by: [id number] Admin: 09/03/21 16:26 Dose: 999 mls/hr Documented by: [id number] Sodium Chloride (Nss) 500 mls @ 999 mls/hr IV .Q31M ONE Stop: 09/03/21 17:43 Last Infusion: 09/03/21 18:40 Dose: 0 mls/hr Documented by: [id number] Admin: 09/03/21 17:46 Dose: 999 mls/hr Documented by: [id number] Insulin Human Regular (Novolin-R Insulin Per Unit Charge) 8 units IV NOW STA Stop: 09/03/21 17:14 Last Admin: 09/03/21 17:46 Dose: 8 units Documented by: [id number] Cosigned by: [id number] Ioversol (Optiray 320 100ml) 94 ml IV ONCE ONE Stop: 09/03/21 16:37 Last Admin: 09/03/21 16:37 Dose: 94 ml Documented by: [id number] Imaging Data Radiologist's Impression: Abdomen/Pelvis CT 09/03/21 16:11 CT SCAN OF THE ABDOMEN AND PELVIS WITH IV CONTRAST CLINICAL HISTORY: Elevated hepatic transaminases and elevated bilirubin. COMPARISON STUDY: Abdominal CT dated 04/20/2020. TECHNIQUE: Following the IV administration of 94 cc of Optiray 320, CT scan of the abdomen and pelvis is performed from the lung bases to the proximal femora. Images are reviewed in the axial, sagittal, and coronal planes. IV contrast was administered without complication. A dose lowering technique was utilized adhering to the principles of ALARA. CT DOSE: 1410.99 mGy.cm FINDINGS: Lung bases: The heart is normal in size and without pericardial effusion. The lung bases are clear. Liver: The contrast-enhanced liver is enlarged, measuring 19.9 cm in length. The liver demonstrates diffusely diminished attenuation consistent with hepatic steatosis. There is mild to moderate intrahepatic biliary ductal dilatation. The hepatic veins and portal veins are patent. There is evidence of extensive/diffuse hepatic metastatic disease. The largest right lobe lesion is seen below the diaphragm in image #54 and measures up to 4.4 cm. Gallbladder: Unremarkable. Spleen: Normal in size and attenuation. Pancreas: An infiltrative low-attenuation mass lesion is suggested in the pancreatic head/uncinate process on image #198. This measures at least 3 cm in length. This may be invaded the adjacent duodenum. This minimally abuts but does not encase the superior mesenteric vein. There is upstream dilatation of the pancreatic duct which measures up to 5 mm in diameter. Mild infiltration and trace fluid seen around the distal pancreatic body and tail. No organized peripancreatic fluid collection is identified. The splenic vein is patent. Adrenal glands: Unremarkable. Kidneys: The contrast enhanced kidneys are normal in size and without hydronephrosis. The kidneys enhance symmetrically. A 3 mm nonobstructing calculus is noted in the left kidney. No additional renal calculi identified on this contrast-enhanced examination. Abdominal vasculature: The abdominal aorta is normal in course and caliber noting moderate atherosclerotic calcification. Bowel: There is moderate colonic diverticulosis without CT evidence of acute diverticulitis. No bowel obstruction is seen. Moderate fecal retention is noted throughout the colon. The appendix is well-visualized and normal. Peritoneum: There is no intraperitoneal free air or abdominal ascites. Lymphadenopathy: None. Pelvic viscera: The bladder, prostate, and seminal vesicles are normal as visualized. Skeletal structures: No lytic or blastic lesions are seen. There is mild lumbosacral spondylosis. IMPRESSION: 1. There is a low-attenuation infiltrative mass lesion suggested in the pancreatic head/uncinate as detailed above with evidence of multifocal hepatic metastatic disease. Metastatic pancreatic adenocarcinoma is the diagnosis of exclusion. GI follow-up is recommended. 2. There is mild to moderate intrahepatic biliary ductal dilatation. 3. There is upstream dilatation of the pancreatic duct, with mild peripancreatic infiltration and fluid. Correlate with clinical findings and laboratory studies for evidence of superimposed acute pancreatitis. 4. No organized peripancreatic fluid collection is identified. 5. The liver is enlarged and mildly steatotic. 6. Left-sided nephrolithiasis. 7. Additional findings as above. ACT 112: Positive. There are findings on this exam that require communication between the performing entity and the patient following Patient Test Result Information Act ([place] Act 112) guidelines. Electronically signed by: Coy Rey M.D. 09/03/2021 5:00 PM Discharge Plan Visit Data Chief Complaint: Abnormal Labs/Diagnostic Testing Stated Complaint: BLOOD TESTS ABNORMAL, A1C HIGH, BEEN FEELING ILL ED Provider: Russell Smith Discharge Problem: Pancreatic mass, Elevated bilirubin, Transaminitis, Acute hyperglycemia Forms Stand Alone Forms: My [facility] Prescriptions Prescriptions: No Action metformin 500 mg tablet extended release 24 hr 500 mg PO BID Qty: 60 RF: 5 acetaminophen [Tylenol Arthritis Pain] 650 mg tablet extended release 650 mg PO DAILY PRN (Reason: Pain) RF: 0 atorvastatin 20 mg tablet 20 mg PO DAILY Qty: 90 RF: 3 testosterone 4 mg/24 hr patch 24 hour 1 patch TD HS Qty: 30 RF: 5 omega-3 fatty acids [Fish Oil Concentrate] 1,000 mg capsule 2,000 mg PO HS RF: 0 ascorbic acid (vitamin C) [Vitamin C] 500 mg tablet 500 mg PO HS RF: 0 cholecalciferol (vitamin D3) [Vitamin D3] 25 mcg (1,000 unit) capsule 25 mcg PO HS RF: 0 azelastine 137 mcg (0.1 %) aerosol,spray 1 spray intranasal BID PRN (Reason: as directed) RF: 0 Referrals Referrals: Chrissie Welch MD [Primary Care Provider] -
[2021-09-03 16:58] LABS: Appearance Urine Clear (Clear); Blood Urine Negative (Negative); Color Urine Dark Yellow; Glucose Urine UA 3+ (Negative); Ketones Urine 1+ (Negative); Leukocyte Esterase Urine Negative (Negative); Nitrite Urine Negative (Negative); Protein Urine Negative (Negative); Urobilinogen Urine Negative (Negative)
[2021-09-03 17:02] LABS: INR 1.3 (0.9-1.1); Prothrombin Time 13.3 Seconds (9.0-12.0)
--- NOTE | 2021-09-03 17:02 | CT Scan Report ---
CT SCAN OF THE ABDOMEN AND PELVIS WITH IV CONTRAST CLINICAL HISTORY: Elevated hepatic transaminases and elevated bilirubin. COMPARISON STUDY: Abdominal CT dated 04/20/2020. TECHNIQUE: Following the IV administration of 94 cc of Optiray 320, CT scan of the abdomen and pelvi s is performed from the lung bases to the proximal femora. Images are reviewed in the axial, sagittal , and coronal planes. IV contrast was administered without complication. A dose lowering technique wa s utilized adhering to the principles of ALARA. CT DOSE: 1410.99 mGy.cm FINDINGS: Lung bases: The heart is normal in size and without pericardial effusion. The lung bases are clear. Liver: The contrast-enhanced liver is enlarged, measuring 19.9 cm in length. The liver demonstrates d iffusely diminished attenuation consistent with hepatic steatosis. There is mild to moderate intrahep atic biliary ductal dilatation. The hepatic veins and portal veins are patent. There is evidence of e xtensive/diffuse hepatic metastatic disease. The largest right lobe lesion is seen below the diaphrag m in image #54 and measures up to 4.4 cm. Gallbladder: Unremarkable. Spleen: Normal in size and attenuation. Pancreas: An infiltrative low-attenuation mass lesion is suggested in the pancreatic head/uncinate pr ocess on image #198. This measures at least 3 cm in length. This may be invaded the adjacent duodenum . This minimally abuts but does not encase the superior mesenteric vein. There is upstream dilatation of the pancreatic duct which measures up to 5 mm in diameter. Mild infiltration and trace fluid seen around the distal pancreatic body and tail. No organized peripancreatic fluid collection is identifi ed. The splenic vein is patent. Adrenal glands: Unremarkable. Kidneys: The contrast enhanced kidneys are normal in size and without hydronephrosis. The kidneys enh ance symmetrically. A 3 mm nonobstructing calculus is noted in the left kidney. No additional renal c alculi identified on this contrast-enhanced examination. Abdominal vasculature: The abdominal aorta is normal in course and caliber noting moderate atheroscle rotic calcification. Bowel: There is moderate colonic diverticulosis without CT evidence of acute diverticulitis. No bowel obstruction is seen. Moderate fecal retention is noted throughout the colon. The appendix is well-v isualized and normal. Peritoneum: There is no intraperitoneal free air or abdominal ascites. Lymphadenopathy: None. Pelvic viscera: The bladder, prostate, and seminal vesicles are normal as visualized. Skeletal structures: No lytic or blastic lesions are seen. There is mild lumbosacral spondylosis. IMPRESSION: 1. There is a low-attenuation infiltrative mass lesion suggested in the pancreatic head/uncinate as d etailed above with evidence of multifocal hepatic metastatic disease. Metastatic pancreatic adenocarc inoma is the diagnosis of exclusion. GI follow-up is recommended. 2. There is mild to moderate intrahepatic biliary ductal dilatation. 3. There is upstream dilatation of the pancreatic duct, with mild peripancreatic infiltration and flu id. Correlate with clinical findings and laboratory studies for evidence of superimposed acute pancre atitis. 4. No organized peripancreatic fluid collection is identified. 5. The liver is enlarged and mildly steatotic. 6. Left-sided nephrolithiasis. 7. Additional findings as above. ACT 112: Positive. There are findings on this exam that require communication between the performing entity and the patient following Patient Test Result Information Act ([place] Act 112) guidelines. Electronically signed by: Coy Rey M.D. 09/03/2021 5:00 PM
[2021-09-03 17:03] LABS: Albumin Globulin Ratio 1.2 (0.9-2); Albumin Level 3.4 gm/dl (3.4-5.0); BUN Creatinine Ratio 15.5 (10-20); Bilirubin,Total 8.5 mg/dl (0.2-1.0); Calcium 9.1 mg/dl (8.5-10.1); Creatinine Clr Calc Pharmacy 121.8 ml/min; Est GFR (African American) 107.1 ml/min; Est GFR (Non-African American) 92.4 ml/min; Globulin 2.9 gm/dl (2.5-4.0); Potassium 3.7 mmol/L (3.5-5.1); Total Protein 6.3 gm/dl (6.0-8.3)
[2021-09-03 17:03] LABS: Bilirubin Urine 1+ (Negative)
[2021-09-03] MEDS ORDERED: NovoLIN-R INSULIN PER UNIT CHARGE IV STA (17:13)
[2021-09-03] MEDS ORDERED: SODIUM CHLORIDE 0.9% 500 ML IV ONE (17:13)
--- NOTE | 2021-09-03 18:29 | History & Physical Report ---
Date of Service September 03, 2021 Assessment & Plan (1) Pancreatic mass: Plan: Patient has a pancreatic head mass with biliary ductal dilatation and pancreatic ductal dilatation which looks to be consistent with a possible primary pancreatic malignancy with metastatic disease to the liver. He subsequently has significant elevation of his bilirubin to 8.5 and elevation of his transaminase and alkaline phosphatase. We will keep the patient n.p.o. except ice chips he will be hydrated with fluids we will have gastroenterology consultation to see if the patient would benefit from consideration of any stenting to relieve his biliary obstruction. This would also serve as an attempt to get a tissue diagnosis at this time. He will be placed upon DVT prevention with heparin only having 1 dose this evening and then holding it tomorrow in case a interventional procedure would be undertaken. This point time his lipase is not elevated we will fractionate his bilirubin Patient has an elevation of his INR to 1.3 and steatosis is seen on CAT scan of the abdomen (2) Diabetes mellitus: Plan: Patient has a history of diabetes mellitus but has marked elevation of his blood glucose including an A1c of 13 would suggest has been poor control for some time. Use basal bolus insulin with this patient being cautious with his n.p.o. status for the first 24 hours and is lindsay nature to the insulin treatment (3) DVT prophylaxis: Plan: Heparin will be used for DVT prevention given 1 dose eaves this evening and then holding it to restart after any procedures tomorrow. SCDs will be employed in the meantime Plan: Patient has a history of moderate aortic stenosis typically following with Dr. Flores last valve area was 1.1 cm History of Present Illness Primary Care Provider: Chrissie Welch MD Patient sent into the emergency department due to abnormal labs including evidence of jaundice. She has had some epigastric pain which they were treating to meloxicam. Patient's labs also significant elevation of his transaminases to AST 208 ALT 314 alkaline phosphatase 573. His total bilirubin is 8.5. We have not yet fractionated. He is markedly hyperglycemic and although typically only having control metformin his glucoses are in the 4-500 range and A1c performed during his ER visit today is 13.0. Unfortunately CT scan confirms a pancreatic head mass with some dilatation of the pancreatic ducts and also intrahepatic and extrahepatic biliary ductal dilatation there is also dilatation of the pancreatic duct and concern for metastatic disease within the liver Patiently brought in for evaluation by gastroenterology whether any stenting would benefit this patient given his marked elevation of bilirubin. We will fractionate the bilirubin. We will offer attempts to try to perform diagnostic modalities with this patient. In addition we will control his markedly elevated blood glucose. Covid is negative on presentation Allergies Allergy/AdvReac Type Severity Reaction Status Date / Time No Known Allergies Allergy Verified 09/03/21 16:25 Home Medications Medication Instructions Recorded Confirmed Type omega-3 fatty acids 1,000 mg 2,000 mg PO HS cap 03/02/19 09/03/21 History capsule (Fish Oil Concentrate) ascorbic acid (vitamin C) 500 mg 500 mg PO HS tab 10/04/20 09/03/21 History tablet (Vitamin C) cholecalciferol (vitamin D3) 25 25 mcg PO HS cap 10/04/20 09/03/21 History mcg (1,000 unit) capsule (Vitamin D3) metformin 500 mg tablet,extended 500 mg PO BID #60 tab 02/19/21 09/03/21 Rx release 24 hr testosterone 4 mg/24 hr 1 patch TD HS #30 ea 04/05/21 09/03/21 Rx transdermal 24 hour patch acetaminophen 650 mg 650 mg PO DAILY PRN tab 05/31/21 09/03/21 History tablet,extended release (Tylenol Arthritis Pain) atorvastatin 20 mg tablet 20 mg PO DAILY #90 tab 05/31/21 09/03/21 Rx azelastine 137 mcg (0.1 %) nasal 1 spray INTRANASAL BID PRN 09/03/21 09/03/21 History spray aerosol Past Med/Surg History Medical History (Updated 09/03/21 @ 18:28 by Jay Smith MD) Heart murmur Lumbar facet arthropathy Surgical History Hx of total knee replacement Family History Father Prostate cancer Myocardial infarction Denies family history of Ovarian cancer Breast cancer Colorectal cancer Social History Smoking Status: Never smoker Second Hand Exposure: No; Hx Alcohol Use: Yes Alcohol type: other Alcohol Intake Frequency: 4 or More x per/Week Hx Substance Use: No Preferred Language: [place]dean Visual Impairment: No Limitations Hearing Ability: Normal marital status: Current Living Situation: Spouse current occupational status: retired Feels Safe at Home: Yes Childhood Exposure to Second-Hand Smoke: No caffeine: Yes (Pepsi) Dental Care, Regularly: Yes Physical Activity Frequency: 1-2 Times per Week Seatbelt Use: always Sunscreen Use: No Review of Systems Review of Systems: Mild distress and fatigue no headache, no visual changes no speech or swallowing issues no chest pain, pressure or palpitations no shortness of breath, cough or wheezes no abdominal pain, nausea or vomiting, diarrhea or constipation no dysuria, hematuria or frequency no focal joint pain or swelling no back pain, CVA tenderness or radicular pain no bruising, bleeding or rashes no focal signs of weakness or numbness or altered sensation no complaints of anxiety or depression.. Physical Exam Physical Exam: The patient appeared well nourished and normally developed. Vital signs as documented. Head exam is normocephalic atraumatic Neck is without JVD, thyromegaly, or carotid bruits. Lungs are clear to auscultation, no focal loss of breath sounds Cardiac exam, Rhythm is regular.. No murmurs, rubs or gallops. Abdominal exam reveals normal bowel sounds, soft non tender, no masses Extremities are nonedematous and both pedal pulses are present Neurologic exam is alert and oriented, no focal loss of strength or sensation Skin is with jaundice Psychologically is without concerns for anxiety or depression.. Results & Data Results & Data ([facility]) Vital Signs (Past 12 Hours) Vital Signs Temp Pulse Pulse Resp BP BP Pulse Ox 09/03/21 16:26 85 79 20 158/92 H 96 09/03/21 15:46 98.1 F 81 20 152/96 H 95 Diagnostic Findings Abdomen/Pelvis CT 09/03/21 16:11 CT SCAN OF THE ABDOMEN AND PELVIS WITH IV CONTRAST CLINICAL HISTORY: Elevated hepatic transaminases and elevated bilirubin. COMPARISON STUDY: Abdominal CT dated 04/20/2020. TECHNIQUE: Following the IV administration of 94 cc of Optiray 320, CT scan of the abdomen and pelvis is performed from the lung bases to the proximal femora. Images are reviewed in the axial, sagittal, and coronal planes. IV contrast was administered without complication. A dose lowering technique was utilized adhering to the principles of ALARA. CT DOSE: 1410.99 mGy.cm FINDINGS: Lung bases: The heart is normal in size and without pericardial effusion. The lung bases are clear. Liver: The contrast-enhanced liver is enlarged, measuring 19.9 cm in length. The liver demonstrates diffusely diminished attenuation consistent with hepatic steatosis. There is mild to moderate intrahepatic biliary ductal dilatation. The hepatic veins and portal veins are patent. There is evidence of ex tensive/diffuse hepatic metastatic disease. The largest right lobe lesion is seen below the diaphragm in image #54 and measures up to 4.4 cm. Gallbladder: Unremarkable. Spleen: Normal in size and attenuation. Pancreas: An infiltrative low-attenuation mass lesion is suggested in the pancreatic head/uncinate process on image #198. This measures at least 3 cm in length. This may be invaded the adjacent duodenum. This minimally abuts but does not encase the superior mesenteric vein. There is upstream dilatation of the pancreatic duct which measures up to 5 mm in diameter. Mild infiltration and trace fluid seen around the distal pancreatic body and tail. No organized peripancreatic fluid collection is identified. The splenic vein is patent. Adrenal glands: Unremarkable. Kidneys: The contrast enhanced kidneys are normal in size and without hydronephrosis. The kidneys enhance symmetrically. A 3 mm nonobstructing calculus is noted in the left kidney. No additional renal calculi identified on this contrast-enhanced examination. Abdominal vasculature: The abdominal aorta is normal in course and caliber noting moderate atherosclerotic calcification. Bowel: There is moderate colonic diverticulosis without CT evidence of acute diverticulitis. No bowel obstruction is seen. Moderate fecal retention is noted throughout the colon. The appendix is well-visualized and normal. Peritoneum: There is no intraperitoneal free air or abdominal ascites. Lymphadenopathy: None. Pelvic viscera: The bladder, prostate, and seminal vesicles are normal as visualized. Skeletal structures: No lytic or blastic lesions are seen. There is mild lumbosacral spondylosis. IMPRESSION: 1. There is a low-attenuation infiltrative mass lesion suggested in the pancreatic head/uncinate as detailed above with evidence of multifocal hepatic metastatic disease. Metastatic pancreatic adenocarcinoma is the diagnosis of exclusion. GI follow-up is recommended. 2. There is mild to moderate intrahepatic biliary ductal dilatation. 3. There is upstream dilatation of the pancreatic duct, with mild peripancreatic infiltration and fluid. Correlate with clinical findings and laboratory studies for evidence of superimposed acute pancreatitis. 4. No organized peripancreatic fluid collection is identified. 5. The liver is enlarged and mildly steatotic. 6. Left-sided nephrolithiasis. 7. Additional findings as above. ACT 112: Positive. There are findings on this exam that require communication between the performing entity and the patient following Patient Test Result Information Act ([place] Act 112) guidelines. Electronically signed by: Coy Rey M.D. 09/03/2021 5:00 PM PG Care Time/CCT Total # of Minutes Spent Total Time Spent with Patient: Total time spent is greater than 50% in coordination of care (as documented) at patient's floor/unit and/or counseling patient: Coding Level of Care Code 60148 Initial Inpt Care Lvl 2 Diagnoses Diabetes mellitus E11.9 Pancreatic mass K86.89 DVT prophylaxis Z29.9
[2021-09-03] MEDS ORDERED: HEPARIN SOD 5,000 UNIT/0.5 ML VIAL SQ STA (19:09)
[2021-09-03] MEDS ORDERED: CARBOHYDRATES FOR HYPOGLYCEMIA PO PRN (21:03)
[2021-09-03] MEDS ORDERED: ONDANSETRON INJ 2 MG/ML 2 ML VIAL IV PRN (21:03)
[2021-09-03] MEDS ORDERED: DEXTROSE 50% 50 ML SYRINGE IV PRN (21:03)
[2021-09-03] MEDS ORDERED: GLUCOSE 10 TABS/TUBE PO PRN (21:03)
[2021-09-03] MEDS ORDERED: GLUCOSE 40% GEL 15 GM TUBE PO PRN (21:03)
[2021-09-03] MEDS ORDERED: PHARMACY GLYCEMIC MGMT CONSULT PRN (21:03)
[2021-09-03] MEDS ORDERED: LORazepam 2 MG/1 ML VIAL IV PRN (21:03)
[2021-09-03] MEDS ORDERED: GLUCAGON FOR INJ 1 MG VIAL SQ PRN (21:03)
[2021-09-03] MEDS ORDERED: QUEtiapine FUMARATE 25 MG TABLET PO ONE (21:15)
[2021-09-03] MEDS: NORMOSOL-R 1,000 ML IV SCH (22:14)
[2021-09-03] MEDS: INSULIN ASPART PER UNIT SC SCH (22:14)
[2021-09-03] MEDS ORDERED: INSULIN GLARGINE SOLOSTAR 100 UNITS/ML 3 ML PEN SC SCH (23:00)
[2021-09-04] MEDS: INSULIN ASPART PER UNIT SC SCH ×6 (01:33→20:57)
[2021-09-04] MEDS: MoRPHine SULFATE 2 MG/ML CARP IV PRN ×3 (07:28→19:23)
[2021-09-04 08:03] LABS: INR 1.3 (0.9-1.1); Prothrombin Time 13.6 Seconds (9.0-12.0)
[2021-09-04] MEDS: NORMOSOL-R 1,000 ML IV SCH ×2 (08:05→19:32)
[2021-09-04 08:16] LABS: Albumin Globulin Ratio 1.3 (0.9-2); BUN Creatinine Ratio 12.1 (10-20); Bilirubin,Total 7.4 mg/dl (0.2-1.0); Calcium 8.2 mg/dl (8.5-10.1); Creatinine Clr Calc Pharmacy 148.8 ml/min; Est GFR (African American) 116.4 ml/min; Est GFR (Non-African American) 100.4 ml/min; Globulin 2.3 gm/dl (2.5-4.0); Potassium 3.1 mmol/L (3.5-5.1); Total Protein 5.3 gm/dl (6.0-8.3)
--- NOTE | 2021-09-04 09:10 | Gastrointestinal Consultation ---
Date of Consultation September 04, 2021 Assessment & Plan (1) Elevated LFTs: (2) Pancreatic mass: Pt is a 76 yo male w symptoms of jaundice, upper abd pain, noted to have elevated LFTs and CT w contrast studies indicating pancreas head/uncinate mass w biliary and pancreatic ductal dilations, possible hepatic metastatic processes. - FL diet today - IVF support - Plan for EUS/ERCP tomorrow 09/[address] Snyder - Supportive measures for symptoms control History of Present Illness Reason for Consultation: Elevated Tbili, pancreas mass, ductal dilation Requesting Physician: Dr. Leeroy Mendoza Attending Physician: Dr. Casey Snyder History of Present Illness Pt is a 76 yo male who presented to ED last night due to jaundice and c/o epigastric pain. He denies associated fever, chills, CP, SOB, n/v, changes in bowel habits, sick contact, new meds. Labs are notable for mild anemia, coagulopathy, and elevated LFTs: Tbili 7.4, AST 224, ALT 260, Alk phose 504. CT abd/pelvis w contrast showed 3cm pancreas head/uncinate mass w possible multifocal hepatic metastatic disease. + biliary and pancreatic ductal dilation as well. Pt denies personal hx of cancers. He report father w hx of prostate ca. Allergies Allergy/AdvReac Type Severity Reaction Status Date / Time No Known Allergies Allergy Verified 09/03/21 16:25 Home Medications Medication Instructions Recorded Confirmed Type omega-3 fatty acids 1,000 mg 2,000 mg PO HS cap 03/02/19 09/03/21 History capsule (Fish Oil Concentrate) ascorbic acid (vitamin C) 500 mg 500 mg PO HS tab 10/04/20 09/03/21 History tablet (Vitamin C) cholecalciferol (vitamin D3) 25 25 mcg PO HS cap 10/04/20 09/03/21 History mcg (1,000 unit) capsule (Vitamin D3) metformin 500 mg tablet,extended 500 mg PO BID #60 tab 02/19/21 09/03/21 Rx release 24 hr testosterone 4 mg/24 hr 1 patch TD HS #30 ea 04/05/21 09/03/21 Rx transdermal 24 hour patch acetaminophen 650 mg 650 mg PO DAILY PRN tab 05/31/21 09/03/21 History tablet,extended release (Tylenol Arthritis Pain) atorvastatin 20 mg tablet 20 mg PO DAILY #90 tab 05/31/21 09/03/21 Rx azelastine 137 mcg (0.1 %) nasal 1 spray INTRANASAL BID PRN 09/03/21 09/03/21 History spray aerosol Patient History Medical History (Updated 09/03/21 @ 19:40 by Russell Smith DO) Heart murmur Lumbar facet arthropathy Surgical History Hx of total knee replacement Family History Father Prostate cancer Myocardial infarction Denies family history of Ovarian cancer Breast cancer Colorectal cancer Social History Smoking Status: Former smoker Second Hand Exposure: No; Do You Dip or Chew Tobacco: No; Hx Alcohol Use: Yes Alcohol type: other Alcohol Intake Frequency: 4 or More x per/Week Hx Substance Use: No Preferred Language: Taiwanese Communication Ability: Effective Visual Impairment: No Limitations Hearing Ability: Normal Weather Teacher Required: No Beliefs That Will Affect Care: None marital status: Current Living Situation: Spouse current occupational status: retired Other Information That Helps Us Care for You: No Feels Safe at Home: Yes Safety Concerns: Feels Safe At This Time Childhood Exposure to Second-Hand Smoke: No caffeine: Yes (Pepsi) Dental Care, Regularly: Yes Physical Activity Frequency: 1-2 Times per Week Seatbelt Use: always Sunscreen Use: No Assistive Devices: Glasses Review of Systems Review of Systems: All systems reviewed & are unremarkable except as noted in HPI & below Physical Exam Constitutional: WD/WN, vitals as above well groomed, cooperative and comfortable Eyes: PERRLA, EOMs intact, jaundiced sclera ENMT: external ear and nose normal, oropharynx normal Respiratory: normal respiratory effort, lungs clear to auscultation Cardiovascular: RRR, no murmur, no edema Gastrointestinal (Abdomen): Hypoactive BS, uncomfortable but not painful on palpation over upper abd areas Skin: no rashes, warm and dry + jaundice Psychiatric: A+Ox3, euthymic affect Lymphatic: no lymphedema Results & Data ([facility]) Vital Signs (Past 12 Hours) Vital Signs Temp Pulse Pulse Resp BP Pulse Ox 09/04/21 07:02 36.5 C 58 L 17 132/70 95 03/28/22 22:23 36.6 C 71 18 157/81 H 92
[2021-09-04] MEDS ORDERED: Nursing to Pharmacy Communication SCH (09:15)
[2021-09-04] MEDS: POTASSIUM CHLORIDE CRTAB 20 MEQ TABCR PO SCH ×2 (10:31→16:43)
--- NOTE | 2021-09-04 10:41 | Hospitalist Progress Note ---
Date of Service September 04, 2021 Assessment & Plan (1) Pancreatic mass: Plan: 76-year-old WM with PMHx IFG and HLD presented to the ED given abnormal labs obtained by PCP given jaundiced x 1 week, epigastric pain x 3 months and 55lb weight loss over 3 months. - LFTs elevated and radiographic evidence of pancreatic head mass and intraductal obstruction - lipase WNL - CT showing concern for hepatic metastatic spread - GI consulted. Planning EUS/ERCP in am for stenting and bx - likely pancreatic CA with mets to liver, consulted Oncology-- appreciate assistance - spoke with Dr. Vargas who recommends CT of the chest and CA 19-9 to help with staging and guiding treatment - consulted General Surgery for Mediport insertion during procedure tomorrow-- appreciate assistance. - consider referral to [facility] upon [place]/C to determine if candidate for Whipple. Uncertain is hepatic dx excludes him from this; however, uncertain if chemo +/- radiating can help with metastatic process and then Whipple can be considered? (2) Elevated LFTs: Plan: - TB: 8.5, AST: 208, ALT:314 given obstructing mass - lipase WNL - for ERCP with stenting tomorrow (3) Hepatic metastases: Plan: - given concern for hepatic mets, uncertain if this excludes him from being a candidate for a Whipple procedure - establish with Oncology. Will need staging and FU (4) Hyperglycemia: Plan: - presenting BS of 582 - pt with IFG prior to this hospitalization - A1C: 13.0 consistent with DM - pancreatic mass likely big contributing factor - now on lantus/log - monitor BS - certified diabetes educator consulted-- appreciate assistance - continue to monitor - BS today= 195 (5) Hypokalemia: Plan: - supplement (6) Diabetes mellitus: Plan: - A1C 13.0-- see above (7) Hyperlipidemia: Plan: - h/o - hold all statins given elevated LFTs Plan: Plan of care discussed in great detail with patient, his , and his daughter at bedside. In addition, case discussed with oncology and general surgery regarding coordination of Mediport insertion Admission and Anticipated Discharge Date Admission Date: September 03, 2021 Subjective Patient seen on daily rounds today. Hospitalized with abnormal liver function studies and radiographic evidence of a pancreatic mass presumably malignancy and multifocal hepatic lesions likely metastatic disease. Had blood work done as an outpatient given jaundice X1 week along with a 55 pound weight loss over the past 3 months, progressive fatigue, and night sweats. Sent to the ED by his PCP given abnormal lab results. Review of Systems Review of Systems: All systems reviewed and are unremarkable except as noted in HPI and below Denies fevers, chills, headache, nasal congestion, sore throat, cough, chest pain, shortness of breath, palpitations, orthopnea, PND, nausea, vomiting, markell rrhea, constipation, dysuria, hematuria, frequency, back pain, joint pain or swelling, easy bruising or bleeding Physical Exam Physical Exam: General: Resting comfortably in his hospital bed. Surprisingly , not overtly jaundiced. NAD. HEENT: Head is AT/NC. Buccal mucosa is moist and pink. Mild scleral icterus Neck: No JVD. Negative hepatojugular reflex Cardiac: RRR with 2/6 BARNEY Lungs: CTA without W/R/R Abdomen: Normoactive X4. Abdomen soft with mild epigastric tenderness Extremities: No peripheral clubbing cyanosis or edema Neuro: A&O X4. Cranial nerves II through XII are grossly intact. No focal neuro deficits Skin: No obvious skin lesions or rashes Psych: Appropriate affect. Pleasant and cooperative Results & Data Results & Data ([facility]) Vital Signs (Past 12 Hours) Vital Signs Temp Pulse Resp BP Pulse Ox 09/04/21 07:02 36.5 C 58 L 17 132/70 95 Laboratory Results 09/03/21 16:22 09/04/21 07:25 Total bilirubin: 7.4 AST: 224 ALT: 260 Alkaline phosphatase: [address] of A/P: IMPRESSION: 1. There is a low-attenuation infiltrative mass lesion suggested in the pancreatic head/uncinate as detailed above with evidence of multifocal hepatic metastatic disease. Metastatic pancreatic adenocarcinoma is the diagnosis of exclusion. GI follow-up is recommended. 2. There is mild to moderate intrahepatic biliary ductal dilatation. 3. There is upstream dilatation of the pancreatic duct, with mild peripancreatic infiltration and fluid. Correlate with clinical findings and laboratory studies for evidence of superimposed acute pancreatitis. 4. No organized peripancreatic fluid collection is identified. 5. The liver is enlarged and mildly steatotic. 6. Left-sided nephrolithiasis. 7. Additional findings as above. PG Care Time/CCT Total # of Minutes Spent Total Time Spent with Patient: Total time spent is greater than 50% in coordination of care (as documented) at patient's floor/unit and/or counseling patient: Coding Level of Care Code 80256 Subseq Hosp Care Lvl 3 Diagnoses Pancreatic mass K86.89 Elevated LFTs R79.89 Hepatic metastases C78.7 Hyperglycemia R73.9 Hypokalemia E87.6 Diabetes mellitus E11.9 Hyperlipidemia E78.5
--- NOTE | 2021-09-04 10:55 | Surgery Consultation ---
Date of Consultation September 04, 2021 Assessment & Plan (1) Pancreatic mass: This is a 76yM with a PMH of aortic stenosis, DM, ED, osteoarthritis, who presented to the [facility] on 09/03/21 with abdominal pain and jaundice. Workup with a CT a/p revealed an infiltrative mass lesion suggested in the pancreatic head/uncinate as detailed above with evidence of multifocal hepatic metastatic disease with concern for metastatic pancreatic adenocarcinoma. Today- labs reveal Tb:7.4, AST: 224, ALT: 260, AlkP:504. INR: 1.3. GI has evaluated the patient and planning on EUS/ERCP tomorrow. We have been asked to consider Port placement for presumed diagnosis of pancreatic cancer. We can add patient onto schedule tomorrow to perform Port in conjunction with GI's procedure. Patient agreeable with plan. NPO at midnight. History of Present Illness Attending Physician: Leeroy Mendoza History of Present Illness This is a 76yM with a PMH of aortic stenosis, DM, ED, osteoarthritis, who presented to the [facility] on 09/03/21 with abdominal pain and jaundice. Patient states his abdominal pain started in June which per patient began after starting meloxicam. He rates the pain between a 2-6/10 in severity, located in the mid/upper abdomen. Workup in the ER with a CT a/p revealed an infiltrative mass lesion suggested in the pancreatic head/uncinate as detailed above with evidence of multifocal hepatic metastatic disease with concern for metastatic pancreatic adenocarcinoma. He has noticed some jaundice of the skin of recent. He reports a 55lb weight loss since May due to early satiety. He noticed some dark appearing stools while on the meloxicam. He denies any F/C, CP/SOB, nausea/vomiting, pruritus. Allergies Allergy/AdvReac Type Severity Reaction Status Date / Time No Known Allergies Allergy Verified 09/03/21 16:25 Home Medications Medication Instructions Recorded Confirmed Type omega-3 fatty acids 1,000 mg 2,000 mg PO HS cap 03/02/19 09/03/21 History capsule (Fish Oil Concentrate) ascorbic acid (vitamin C) 500 mg 500 mg PO HS tab 10/04/20 09/03/21 History tablet (Vitamin C) cholecalciferol (vitamin D3) 25 25 mcg PO HS cap 10/04/20 09/03/21 History mcg (1,000 unit) capsule (Vitamin D3) metformin 500 mg tablet,extended 500 mg PO BID #60 tab 02/19/21 09/03/21 Rx release 24 hr testosterone 4 mg/24 hr 1 patch TD HS #30 ea 04/05/21 09/03/21 Rx transdermal 24 hour patch acetaminophen 650 mg 650 mg PO DAILY PRN tab 05/31/21 09/03/21 History tablet,extended release (Tylenol Arthritis Pain) atorvastatin 20 mg tablet 20 mg PO DAILY #90 tab 05/31/21 09/03/21 Rx azelastine 137 mcg (0.1 %) nasal 1 spray INTRANASAL BID PRN 09/03/21 09/03/21 History spray aerosol Patient History Medical History Heart murmur Lumbar facet arthropathy Surgical History Hx of total knee replacement Family History Father Prostate cancer Myocardial infarction Denies family history of Ovarian cancer Breast cancer Colorectal cancer Social History Smoking Status: Former smoker Second Hand Exposure: No; Hx Alcohol Use: Yes Alcohol type: other Alcohol Intake Frequency: 4 or More x per/Week Hx Substance Use: No Preferred Language: Slovenian Communication Ability: Effective Visual Impairment: No Limitations Hearing Ability: Normal Ply Cutter Required: No Beliefs That Will Affect Care: None marital status: Current Living Situation: Spouse current occupational status: retired Feels Safe at Home: Yes Childhood Exposure to Second-Hand Smoke: No caffeine: Yes (Pepsi) Dental Care, Regularly: Yes Physical Activity Frequency: 1-2 Times per Week Seatbelt Use: always Sunscreen Use: No Assistive Devices: Glasses Review of Systems Constitutional: + anorexia; no fever and no chills Respiratory: no dyspnea Cardiovascular: no chest pain Gastrointestinal: + abdominal pain; no nausea and no vomiting Genitourinary: + problem reported (concentrated urine) Integumentary: + problem reported (jaundice); no pruritus Physical Exam Physical Exam: awake/alert Constitutional: well developed and well nourished; no acute distress Respiratory: normal respiratory effort Gastrointestinal (Abdomen): Percussion/Palpation: + abdomen tender (mild discomfort to palpation in mid/upper abdomen) and abdomen soft Results & Data ([facility]) Vital Signs (Past 12 Hours) Vital Signs Temp Pulse Resp BP Pulse Ox 09/04/21 07:02 36.5 C 58 L 17 132/[address] SCAN OF THE ABDOMEN AND PELVIS WITH IV CONTRAST CLINICAL HISTORY: Elevated hepatic transaminases and elevated bilirubin. COMPARISON STUDY: Abdominal CT dated 04/20/2020. TECHNIQUE: Following the IV administration of 94 cc of Optiray 320, CT scan of the abdomen and pelvis is performed from the lung bases to the proximal femora. Images are reviewed in the axial, sagittal, and coronal planes. IV contrast was administered without complication. A dose lowering technique was utilized adhering to the principles of ALARA. CT DOSE: 1410.99 mGy.cm FINDINGS: Lung bases: The heart is normal in size and without pericardial effusion. The lung bases are clear. Liver: The contrast-enhanced liver is enlarged, measuring 19.9 cm in length. The liver demonstrates diffusely diminished attenuation consistent with hepatic steatosis. There is mild to moderate intrahepatic biliary ductal dilatation. The hepatic veins and portal veins are patent. There is evidence of extensive/diffuse hepatic metastatic disease. The largest right lobe lesion is seen below the diaphragm in image #54 and measures up to 4.4 cm. Gallbladder: Unremarkable. Spleen: Normal in size and attenuation. Pancreas: An infiltrative low-attenuation mass lesion is suggested in the pancreatic head/uncinate process on image #198. This measures at least 3 cm in length. This may be invaded the adjacent duodenum. This minimally abuts but does not encase the superior mesenteric vein. There is upstream dilatation of the pancreatic duct which measures up to 5 mm in diameter. Mild infiltration and trace fluid seen around the distal pancreatic body and tail. No organized peripancreatic fluid collection is identified. The splenic vein is patent. Adrenal glands: Unremarkable. Kidneys: The contrast enhanced kidneys are normal in size and without hydronephrosis. The kidneys enhance symmetrically. A 3 mm nonobstructing calculus is noted in the left kidney. No additional renal calculi identified on this contrast-enhanced examination. Abdominal vasculature: The abdominal aorta is normal in course and caliber noting moderate atherosclerotic calcification. Bowel: There is moderate colonic diverticulosis without CT evidence of acute diverticulitis. No bowel obstruction is seen. Moderate fecal retention is noted throughout the colon. The appendix is well-visualized and normal. Peritoneum: There is no intraperitoneal free air or abdominal ascites. Lymphadenopathy: None. Pelvic viscera: The bladder, prostate, and seminal vesicles are normal as visualized. Skeletal structures: No lytic or blastic lesions are seen. There is mild lumbosacral spondylosis. IMPRESSION: 1. There is a low-attenuation infiltrative mass lesion suggested in the pancreatic head/uncinate as detailed above with evidence of multifocal hepatic metastatic disease. Metastatic pancreatic adenocarcinoma is the diagnosis of exclusion. GI follow-up is recommended. 2. There is mild to moderate intrahepatic biliary ductal dilatation. 3. There is upstream dilatation of the pancreatic duct, with mild peripancreatic infiltration and fluid. Correlate with clinical findings and laboratory studies for evidence of superimposed acute pancreatitis. 4. No organized peripancreatic fluid collection is identified. 5. The liver is enlarged and mildly steatotic. 6. Left-sided nephrolithiasis. 7. Additional findings as above. ACT 112: Positive. There are findings on this exam that require communication between the performing entity and the patient following Patient Test Result Information Act ([place] Act 112) guidelines. Electronically signed by: Coy Rey M.D. 09/03/2021 5:00 PM PG Care Time/CCT Total # of Minutes Spent Total Time Spent with Patient: Total time spent is greater than 50% in coordination of care (as documented) at patient's floor/unit and/or counseling patient: Coding Level of Care Code 84274 Initial Inpt Care Lvl 1 Diagnoses Pancreatic mass K86.89
[2021-09-04] MEDS ORDERED: INSULIN GLARGINE SOLOSTAR 100 UNITS/ML 3 ML PEN SC ONE (12:30)
--- NOTE | 2021-09-04 12:36 | Pharmacy Report ---
Pharmacy Glycemic Short Note 2 - Date of Service September 04, 2021 - Glycemic Short BSG Results (Last 24 hours): 09/03/21 09/03/21 09/03/21 16:22 17:47 18:36 Glucose 582 H* POC Glucose 468 H* 392 H* 09/03/21 09/04/21 09/04/21 21:11 01:30 06:10 Glucose POC Glucose 343 H* 269 H 195 H 09/04/21 09/04/21 09/04/21 07:25 09:24 12:03 Glucose 197 H POC Glucose 188 H 232 H OUTPATIENT ANTIDIABETIC REGIMEN: * metformin 500 mg ER bid * A1c 13% - 09/03 ASSESSMENT: * 76 year old male admitted due to abnormal labs/jaundice, elevated transaminases. CT scan confirms pancreatic head mass and concerns for metastatic disease within the liver * A1c 13% on admission, last A1c 10.7% 07/2021. Per previous notes from PCP visit 07/2021 patient with significant weight loss(30 lb loss in 8 weeks), has changed his lifestyle/diet, decreased carbs. PCP opted to not change therapy and had planned to repeat A1c as unclear for recent rise from previous A1c. * BSGs in 400-500s on admission, received total of 29 units of insulin yesterday, of which 10 units were basal * Fasting BSG 195 mg/dL - patient NPO for possible procedure, but then changed to diet later this AM. Now NPO at midnight tonight for ERCP tomorrow * Since patient eating, will start basal insulin at ~0.2 units/kg for today, continue stress of 2 novolog for now. PLAN FOR INPATIENT GLYCEMIC CONTROL: * Hold outpatient oral diabetes medications * Basal insulin * Lantus 20 units x 1 * Bolus insulin * NovoLog per scale ACHS or Q6hrs while NPO * Goal Range: Low 110 mg/dL - High 140 mg/dL * Correction Factor: 20 mg/dL/unit * Nutritional / Prandial insulin per carb ratio of 1 unit per 7 grams CHO consumed
[2021-09-04] MEDS ORDERED: OPTIRAY 320 100ml IV ONE (12:37)
--- NOTE | 2021-09-04 13:22 | CT Scan Report ---
CT SCAN OF THE CHEST WITH IV CONTRAST CLINICAL HISTORY: Metastatic survey. Pancreatic mass and hepatic metastases seen on abdominal CT. COMPARISON STUDY: Chest x-ray dated 10/24/2010. Abdominal CT dated 09/03/2021. TECHNIQUE: Following the IV administration of 93 cc of Optiray 320, CT scan of the thorax was perform ed from the thoracic inlet to the upper abdomen. Images are reviewed in the axial, sagittal, and andrey nal planes. IV contrast was administered without complication. A dose lowering technique was utilize d adhering to the principles of ALARA. CT DOSE: 783.94 mGy.cm FINDINGS: Thyroid: Imaged portions of the thyroid gland are normal in size and attenuation. Thoracic aorta: There is atherosclerotic calcification of the thoracic aorta, which is normal in julian belle and demonstrates standard 3-vessel arch anatomy. No dissection is seen. Pulmonary vasculature: The pulmonary trunk is normal in caliber. There are no filling defects identif ied in the central pulmonary vessels to indicate pulmonary embolus. Note that this examination was no t protocoled for evaluation of the pulmonary arteries. Heart: The heart is enlarged and without pericardial effusion. The coronary arteries are densely calc ified. Lungs and pleural spaces: There is no airspace consolidation typical for pneumonia or pleural effusio n. Scarring/atelectasis is noted at the lung bases. The trachea and central airways are clear. Mediastinum: There is no mediastinal lymphadenopathy. There are calcified subcarinal nodes. Jessica: There are calcified right hilar nodes. No hilar adenopathy is identified. Axillae: There is no axillary lymphadenopathy. Upper abdomen: The liver is steatotic. Again seen is evidence of multifocal hepatic metastatic diseas e, with lesions measuring up to 4.7 cm in diameter. There are calcified splenic granulomas. Mild infi ltration is seen around the pancreatic tail. Skeletal structures: The skeletal structures are osteopenic. No lytic or blastic bony lesions are see n. Spondylotic change is seen throughout the thoracic spine. IMPRESSION: 1. There is no evidence of intrathoracic metastatic disease. 2. There is no airspace consolidation or pleural effusion. 3. Multifocal hepatic metastatic disease is again noted and there is infiltration around the pancreat ic tail. See report of abdominal CT dated 09/03/2021 for detailed intra-abdominal findings. 4. Cardiomegaly. 5. Additional findings as above. ACT 112: Negative or not required by law. Electronically signed by: Coy Rey M.D. 09/04/2021 1:20 PM
--- NOTE | 2021-09-04 15:42 | Consultation Report ---
DATE OF SERVICE: 09/04/2021. REASON FOR CONSULTATION: Suspected pancreatic carcinoma with metastasis. HISTORY OF PRESENT ILLNESS: The patient is a 76-year-old gentleman who presented to the Emergency Department with jaundice. Labs had revealed conjugated hyperbilirubinemia with total bilirubin of 5.6 and elevated liver enzymes with AST of 208, ALT of 314, and alkaline phosphatase of 573. CT abdomen and pelvis obtained on admission revealed low attenuation infiltrative mass lesion suggested in the pancreatic head/uncinate with evidence of multifocal hepatic metastatic disease favoring metastatic pancreatic adenocarcinoma as well as upstream dilatation of the pancreatic duct with mild pancreatic infiltration and fluid with [id number] intrahepatic biliary ductal dilatation. The patient is scheduled for ERCP with possible stent placement tomorrow. Oncology was consulted for possible metastatic pancreatic cancer. The patient indicates that he has had epigastric abdominal pain for a couple of months now. His noticed increase in jaundice over the past few days. He denies pruritus. He endorses weight loss. Denies chest pain, shortness of breath, nausea, vomiting or any other complaints. PAST MEDICAL HISTORY: Lumbar facet arthropathy, hyperlipidemia, and diabetes. PAST SURGICAL HISTORY: Total knee replacement. MEDICATIONS PRIOR TO ADMISSION: Vitamin C supplementation, vitamin D supplementation, metformin 500 mg p.o. b.i.d., atorvastatin 20 mg p.o. daily. FAMILY HISTORY: Significant for prostate cancer in his father. Denies any family history of GI malignancies. ALLERGIES: No known drug allergies. REVIEW OF SYSTEMS: CONSTITUTIONAL: Endorses fatigue and weight loss. Denies night, sweats, or fever. CARDIOVASCULAR: Denies chest pain, palpitations, or dizziness. RESPIRATORY: Denies shortness of breath, hemoptysis or cough. GASTROINTESTINAL: Endorses jaundice. Denies abdominal pain, nausea, vomiting or diarrhea. Endorses epigastric abdominal pain. GENITOURINARY: Negative for urinary frequency, dysuria or hematuria. NEUROLOGIC: Negative for weakness, headaches, or dizziness. LYMPHATICS AND HEMATOLOGIC: Negative for abnormal bleeding or new adenopathy. LABORATORY TESTING: Labs on 09/03/2021 significant for white count of 8.6, hemoglobin of 12.9, hematocrit of 37.7 with platelet count of 233,000. PT of 13.3, INR of 1.3. Sodium 140, potassium 3.1, chloride 105, bicarbonate 29, creatinine 0.58, calcium 8.2, total bilirubin 7.4, AST 224, ALT 260, alkaline phosphatase 504. IMAGING STUDIES: CT abdomen and pelvis on 09/03/2021 revealed, impression: 1. There is a low attenuation infiltrative mass lesion suggested in the pancreatic head/uncinate as detailed above with evidence of multifocal hepatic metastatic disease. Metastatic pancreatic adenocarcinoma is diagnosis of exclusion. GI followup is recommended. 2. There is [id number] intrahepatic biliary ductal dilatation. 3. There is upstream dilatation of the pancreatic duct with mild pancreatic infiltration and fluid. 4. No organized peripancreatic fluid collection is identified. 5. The liver is enlarged and mildly steatotic. 6. Left-sided nephrolithiasis. IMPRESSION AND PLAN: 1. Pancreatic head mass with multifocal hepatic metastatic disease suggestive of metastatic pancreatic adenocarcinoma. 2. Conjugated hyperbilirubinemia. 3. Transaminitis. A very pleasant 76-year-old gentleman who presented with jaundice and was found to have conjugated hyperbilirubinemia. CT abdomen is suggestive of pancreatic adenocarcinoma with metastasis to the liver. Discussed my thoughts with the patient,his and daughter. Recommended tissue diagnosis to establish pancreatic malignancy. He is scheduled for ERCP/EUS with possible stent placement tomorrow. Will await results from biopsy obtained tomorrow. Recommend obtaining CT chest to evaluate for lung metastasis. Also, obtain CA 19-9 . If pancreatic malignancy is confirmed, options for treatment would include systemic IV chemotherapy with modified FOLFIRINOX or gemcitabine/Abraxane. Would recommend considering MediPort placement once the diagnosis is confirmed for chemotherapy administration. Thank you for this consult. Oncology will continue following the patient while in the hospital and upon discharge from hospital. Please feel free to call if you have any further questions. Job ID: [id number] [facility]
--- NOTE | 2021-09-04 17:40 | Anesthesiology Consultation ---
Date of Service September 04, 2021 The patient's potassium is 3.1 today. He is receiving potassium supplementation and will have the level rechecked tomorrow. Assessment & Plan (1) Encounter for pre-operative examination: Chart Review Chart Review: Pending: Refer to Additional Notes / Consult section (potassium level) and Patient NOT seen in Pre Admission Testing Consults Requested none History Surgery Operation Date: 09/05/21 12:30 Proposed Procedures p Endoscopic Retrograde Cholangiopancreato - Casey Snyder DO s Infusaport Insertion - Dany Ybarra DO Height/Weight Height: 6 ft 1 in Weight: 115.6 kg Allergies Allergy/AdvReac Type Severity Reaction Status Date / Time No Known Allergies Allergy Verified 09/03/21 16:25 Medications Home Medications Medication Instructions Recorded Confirmed Last Taken omega-3 fatty acids 1,000 mg 2,000 mg PO HS cap 03/02/19 09/03/21 04/20/20 capsule (Fish Oil Concentrate) ascorbic acid (vitamin C) 500 mg 500 mg PO HS tab 10/04/20 09/03/21 Unknown tablet (Vitamin C) cholecalciferol (vitamin D3) 25 25 mcg PO HS cap 10/04/20 09/03/21 Unknown mcg (1,000 unit) capsule (Vitamin D3) metformin 500 mg tablet,extended 500 mg PO BID #60 tab 02/19/21 09/03/21 Unknown release 24 hr testosterone 4 mg/24 hr 1 patch TD HS #30 ea 04/05/21 09/03/21 Unknown transdermal 24 hour patch acetaminophen 650 mg 650 mg PO DAILY PRN tab 05/31/21 09/03/21 Unknown tablet,extended release (Tylenol Arthritis Pain) atorvastatin 20 mg tablet 20 mg PO DAILY #90 tab 05/31/21 09/03/21 Unknown azelastine 137 mcg (0.1 %) nasal 1 spray INTRANASAL BID PRN 09/03/21 09/03/21 Unknown spray aerosol Active Medications Generic Name Dose Route Start Last Admin Trade Name Freq PRN Reason Stop Dose Admin Parenteral Electrolytes 1,000 mls @ 100 mls/hr 09/03/21 21:03 09/04/21 16:42 Plasma-Lyte A IV 10/03/21 21:02 100 mls/hr .Q10H SONG Infusion Insulin Aspart 0 units 09/03/21 21:45 09/04/21 06:13 Insulin Aspart Per Unit SC 10/03/21 21:44 3 units Q6 SONG Administration Insulin Aspart 0 units 09/04/21 09:30 09/04/21 13:07 Insulin Aspart Per Unit SC 09/04/21 23:59 14 units ACHS SONG Administration Morphine Sulfate 2 mg 09/03/21 21:03 09/04/21 14:10 Morphine Sulfate 2 Mg/Ml Carp IV 09/17/21 21:02 2 mg Q4 PRN Administration Pain Scale: 2,3,4,5,6 Past Medical History Medical History Anemia Aortic stenosis Diabetes mellitus Dyslipidemia Heart murmur Hepatic metastases Hyperlipidemia Hypogonadism Hypokalemia Lumbar facet arthropathy Obesity Osteoarthritis Pancreatic mass Rosacea Weight loss, abnormal Past Family History Family History Father Prostate cancer Myocardial infarction Denies family history of Ovarian cancer Breast cancer Colorectal cancer Past Surgical History Surgical History Hx of total knee replacement Social History Smoking Status: Former smoker Do You Dip or Chew Tobacco: No Hx Alcohol Use: Yes Alcohol type: other alcohol intake frequency: holidays/special occasions only Hx Substance Use: No Physical Exam Vital Signs Last Vital Signs Temp 36.5 C 09/04/21 07:02 Pulse 58 L 09/04/21 07:02 Resp 17 09/04/21 07:02 BP 132/70 09/04/21 07:02 Pulse Ox 95 09/04/21 07:02 Testing Laboratory Results 09/03/21 16:22 09/04/21 07:25 PT 13.6 Seconds (9.0-12.0) H 09/04/21 07:25 INR 1.3 (0.9-1.1) H 09/04/21 07:25 Urine Color Dark Yellow 09/03/21 16:14 Urine Appearance Clear (Clear) 09/03/21 16:14 Urine pH 6.0 (4.5-7.5) 09/03/21 16:14 Ur Specific [place] 1.040 (1.000-1.030) H 09/03/21 16:14 Urine Protein Negative (Negative) 03/28/22 16:14 Urine Glucose (UA) 3+ (Negative) H 09/03/21 16:14 Urine Ketones 1+ (Negative) H 09/03/21 16:14 Urine Nitrite Negative (Negative) 09/03/21 16:14 Ur Leukocyte Esterase Negative (Negative) 09/03/21 16:14 09/04/21 09/04/21 09/04/21 17:10 12:03 09:24 POC Glucose 143 H 232 H 188 H 09/04/21 06:10 POC Glucose 195 H Electrocardiogram Date: 05/31/21 Findings: + NSST changes SR with PACS, rate 67, left axis deviation, pulmonary disease pattern Echocardiogram Date: 04/06/21 EF: 55-60 Other Findings: + LVH (mild concentric) Valvular Disease: + (mild) Other Testing CT SCAN OF THE CHEST WITH IV CONTRAST CLINICAL HISTORY: Metastatic survey. Pancreatic mass and hepatic metastases seen on abdominal CT. COMPARISON STUDY: Chest x-ray dated 10/24/2010. Abdominal CT dated 09/03/2021. TECHNIQUE: Following the IV administration of 93 cc of Optiray 320, CT scan of the thorax was performed from the thoracic inlet to the upper abdomen. Images are reviewed in the axial, sagittal, and coronal planes. IV contrast was administered without complication. A dose lowering technique was utilized adhering to the principles of ALARA. CT DOSE: 783.94 mGy.cm FINDINGS: Thyroid: Imaged portions of the thyroid gland are normal in size and attenuation. Thoracic aorta: There is atherosclerotic calcification of the thoracic aorta, which is normal in caliber and demonstrates standard 3-vessel arch anatomy. No dissection is seen. Pulmonary vasculature: The pulmonary trunk is normal in caliber. There are no filling defects identified in the central pulmonary vessels to indicate pulmonary embolus. Note that this examination was not protocoled for evaluation of the pulmonary arteries. Heart: The heart is enlarged and without pericardial effusion. The coronary arteries are densely calcified. Lungs and pleural spaces: There is no airspace consolidation typical for pneumonia or pleural effusion. Scarring/atelectasis is noted at the lung bases. The trachea and central airways are clear. Mediastinum: There is no mediastinal lymphadenopathy. There are calcified subcarinal nodes. Jessica: There are calcified right hilar nodes. No hilar adenopathy is identified. Axillae: There is no axillary lymphadenopathy. Upper abdomen: The liver is steatotic. Again seen is evidence of multifocal hepatic metastatic disease, with lesions measuring up to 4.7 cm in diameter. There are calcified splenic granulomas. Mild infiltration is seen around the pancreatic tail. Skeletal structures: The skeletal structures are osteopenic. No lytic or blastic bony lesions are seen. Spondylotic change is seen throughout the thoracic spine. IMPRESSION: 1. There is no evidence of intrathoracic metastatic disease. 2. There is no airspace consolidation or pleural effusion. 3. Multifocal hepatic metastatic disease is again noted and there is infiltration around the pancreatic tail. See report of abdominal CT dated 09/03/2021 for detailed intra-abdominal findings. 4. Cardiomegaly. 5. Additional findings as above. ACT 112: Negative or not required by law. Electronically signed by: Coy Rey M.D. 09/04/2021 1:20 PM Dictated:09/04/21 1312
[2021-09-05] MEDS: MoRPHine SULFATE 2 MG/ML CARP IV PRN ×2 (03:26→19:09)
[2021-09-05] MEDS: NORMOSOL-R 1,000 ML IV SCH (05:10)
[2021-09-05] MEDS: INSULIN ASPART PER UNIT SC SCH ×2 (05:41→12:15)
[2021-09-05] MEDS ORDERED: CIPROFLOXACIN / D5W 400 MG/200 ML BAG IV SCH (06:00)
[2021-09-05 08:05] LABS: INR 1.4 (0.9-1.1); Prothrombin Time 14.2 Seconds (9.0-12.0)
[2021-09-05 08:25] LABS: Albumin Globulin Ratio 1.1 (0.9-2); Bilirubin,Total 8.1 mg/dl (0.2-1.0); Calcium 8.2 mg/dl (8.5-10.1); Creatinine Clr Calc Pharmacy 172.7 ml/min; Est GFR (African American) 123.7 ml/min; Est GFR (Non-African American) 106.8 ml/min; Globulin 2.7 gm/dl (2.5-4.0); Potassium 3.3 mmol/L (3.5-5.1); Total Protein 5.7 gm/dl (6.0-8.3)
[2021-09-05] MEDS ORDERED: INDOMETHACIN 50 MG SUPP PR ONE (09:11)
[2021-09-05] MEDS ORDERED: POTASSIUM CHLORIDE CRTAB 20 MEQ TABCR PO STA (09:39)
[2021-09-05] MEDS ORDERED: fentaNYL citrate 100 MCG/2 ML VIAL ONE ×3 (10:37→14:47)
[2021-09-05] MEDS ORDERED: DEXAMETHASONE SOD INJ 4 MG/ML VIAL ONE ×2 (10:37→12:46)
[2021-09-05] MEDS ORDERED: SUCCINYLCHOLINE CHLORIDE 20 MG/ML 10 ML VIAL IV ONE ×2 (10:37→12:46)
[2021-09-05] MEDS ORDERED: ONDANSETRON INJ 2 MG/ML 2 ML VIAL ONE ×2 (10:37→12:46)
[2021-09-05] MEDS ORDERED: MIDAZOLAM HCL 1 MG/ML 2ML VIAL ONE ×2 (10:37→12:46)
[2021-09-05] MEDS ORDERED: PROPOFOL IV EMULSION 10 MG/ML 20 ML VIAL IV ONE ×4 (10:37→14:35)
--- NOTE | 2021-09-05 11:14 | Gastroenterology Progress Note ---
Date of Service September 05, 2021 Assessment & Plan (1) Elevated LFTs: (2) Pancreatic mass: Plan: Pt is a 76 yo male w symptoms of jaundice, upper abd pain, noted to have elevated LFTs and CT w contrast studies indicating pancreas head/uncinate mass w biliary and pancreatic ductal dilations, possible hepatic metastatic processes. - Keep NPO - IVF support - Plan for EUS/ERCP today in OR by Dr. Snyder - Supportive measures for symptoms control Admission and Anticipated Discharge Date Admission Date: September 03, 2021 Supervising Physician Co-Signing Physician Notes I saw and evaluated the patient. We are planning to do upper endoscopy endoscopic ultrasound and ERCP today. Dr. Ybarra is planning to do a port placement given the suspicion for an underlying cancer. Anshul the risks and benefits of the procedures with the patient to include bleeding, infection, perforation, pain insufficient cellularity and failed cannulation of the bile duct. Subjective Pt having less abd pain, no n/v. LFTs similarly elevated Review of Systems Review of Systems: All systems reviewed & are unremarkable except as noted in HPI & below Constitutional: as per Subjective / HPI Physical Exam Constitutional: WD/WN, vitals as above well groomed, cooperative and comfortable Eyes: Icteric sclera, EOMs intact, PERRLA ENMT: external ear and nose normal, oropharynx normal Respiratory: normal respiratory effort, lungs clear to auscultation Cardiovascular: RRR, no murmur, no edema Gastrointestinal (Abdomen): Soft, mildly TTP diffusely, BS hypoactive Skin: no rashes, warm and dry + jaundice Psychiatric: A+Ox3, euthymic affect Lymphatic: no lymphedema Results & Data ([facility]) Vital Signs (Past 12 Hours) Vital Signs Temp Pulse Resp BP Pulse Ox 09/05/21 07:14 36.6 C 75 18 145/69 H 93
[2021-09-05] MEDS ORDERED: INSULIN GLARGINE SOLOSTAR 100 UNITS/ML 3 ML PEN SC ONE (12:30)
--- NOTE | 2021-09-05 12:37 | History & Physical Bridge Note ---
Date of Service September 05, 2021 History & Physical Bridge Note I have examined the patient, reviewed the History & Physical and in the interval since the performance of the History & Physical I have noted the following changes of clinical significance: no changes noted pt seen. discussed procedure and options. discussed risks ( bleeding/infection/blood clots/dvt/pe/mi/vascular injury/pneumothorax etc....)questions answered. pt agreeable.
[2021-09-05] MEDS ORDERED: CIPROFLOXACIN 400MG / 200ML D5W IV ONE (12:53)
--- NOTE | 2021-09-05 12:55 | History & Physical Bridge Note ---
Date of Service September 05, 2021 History & Physical Bridge Note I have examined the patient, reviewed the History & Physical and in the interval since the performance of the History & Physical I have noted the following changes of clinical significance: no changes noted. We are planning to do upper endoscopy endoscopic ultrasound and ERCP today for obstructive jaundice thought to be related to an underlying pancreatic malignancy. I discussed the risks with the patient include bleeding, infection, perforation, pain and need for follow-up studies. The patient is also having a port placed by Dr. Ybarra during the same procedure the need for repeated anesthesia for this unfortunate case.
[2021-09-05] MEDS ORDERED: BUPIVACAINE 0.5 % 5 MG/1 ML MPF 30ML VIAL ONE (13:09)
[2021-09-05] MEDS ORDERED: EPINEPHrine INJ 1 MG/ML AMP ONE (13:09)
[2021-09-05] MEDS ORDERED: PROMETHAZINE HCL 6.25 MG in SODIUM CHLORIDE 0.9% 50 ML IV PRN (13:11)
[2021-09-05] MEDS ORDERED: ATROPINE SULFATE 0.1 MG/ML 10ML SYR IV PRN (13:11)
[2021-09-05] MEDS ORDERED: ONDANSETRON INJ 2 MG/ML 2 ML VIAL IV PRN (13:11)
[2021-09-05] MEDS ORDERED: fentaNYL citrate 100 MCG/2 ML VIAL IV PRN (13:11)
[2021-09-05] MEDS ORDERED: HEPARIN (PORCINE) 1000 UNIT/ML 10 ML (CATH LAB USE ONLY) ONE (13:13)
[2021-09-05] MEDS ORDERED: PHENYLEPHRINE HCL 10 MG/ML VIAL ONE (13:49)
[2021-09-05] MEDS ORDERED: ePHEDrine sulfate 50 MG/ML AMP ONE (13:49)
--- NOTE | 2021-09-05 13:53 | GI REPORT ---
Patient Name: Michael Altamirano Procedure Date: 09/05/2021 1:43 PM Date of : 1945 Admit Type: Inpatient Age: 76 Gender: Male Attending MD: Casey Snyder DO Procedure: Upper GI endoscopy Providers: Casey Snyder DO Referring MD: Chrissie Welch Md, Leeroy Mendoza M.d. Indications: Epigastric abdominal pain, Abnormal CT of the GI tract Medicines: General Anesthesia Complications: No immediate complications. Estimated blood loss: Minimal. Estimated Blood Loss: Estimated blood loss was minimal. Procedure: Pre-Anesthesia Assessment: - Prior to the procedure, a History and Physical was performed, and patient medications, allergies and sensitivities were reviewed. The patient's tolerance of previous anesthesia was reviewed. - The risks and benefits of the procedure and the sedation options and risks were discussed with the patient. All questions were answered and informed consent was obtained. - Patient identification and proposed procedure were verified prior to the procedure by the physician, the nurse and the aquacultural worker supervisor. The procedure was verified in the pre-procedure area. - Pre-procedure physical examination revealed no contraindications to sedation. - ASA Grade Assessment: III - A patient with severe systemic disease. - After reviewing the risks and benefits, the patient was deemed in satisfactory condition to undergo the procedure. - The anesthesia plan was to use monitored anesthesia care (MAC). - Immediately prior to administration of medications, the patient was re-assessed for adequacy to receive sedatives. - The heart rate, respiratory rate, oxygen saturations, blood pressure, adequacy of pulmonary ventilation, and response to care were monitored throughout the procedure. - The physical status of the patient was re-assessed after the procedure. After obtaining informed consent, the endoscope was passed under direct vision. Throughout the procedure, the patient's blood pressure, pulse, and oxygen saturations were monitored continuously. The Endoscope was introduced through the mouth, and advanced to the third part of duodenum. The upper GI endoscopy was accomplished without difficulty. The patient tolerated the procedure well. Findings: The examined esophagus was normal. The entire examined stomach was normal. The duodenal bulb was normal. A large fungating, infiltrative and ulcerated mass with no bleeding was found in the area of the papilla. Biopsies were taken with a cold forceps for histology. Estimated blood loss was minimal. The pathology specimen was placed into Bottle A. Estimated blood loss was minimal. Impression: - Normal esophagus. - Normal stomach. - Normal duodenal bulb. 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 Biopsied. Recommendation: - Perform an upper endoscopic ultrasound (UEUS) today. - Await pathology results. Casey Snyder D.O. Casey Snyder, DO 09/05/2021 1:52:33 PM This report has been signed electronically. Note Initiated On: 09/05/2021 1:43 PM Number of Addenda: 0 I attest to the content of the Intraoperative Record and orders documented therein, exceptions below {[id number]}
--- NOTE | 2021-09-05 14:50 | Post Operative Brief Note ---
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 Failed biliary cannulation due to infiltrating mass. I identified the patient and participated in the time-out.: Yes Procedure Operation Date: 09/05/21 12:30 Actual Procedures p Endoscopic Ultrasound, Endoscopic Retrograde Cholangiopancreatography(Not Applicable) - Casey Snyder DO s Infusaport Insertion(Left) - Dany Ybarra DO Surgeon Casey Snyder DO Denial Resolution Specialist none Estimated Blood Loss 0 Findings Consistent with Post-Op Diagnosis
--- NOTE | 2021-09-05 14:54 | Communication Note ---
Date of Service: September 05, 2021 The patient underwent upper endoscopy endoscopic ultrasound and attempted ERCP today. The upper endoscopy was notable for infiltration of a pancreatic mass into the second portion of the duodenum. I was able to get a fine-needle aspiration from one of the liver masses. To the infiltrating pancreatic mass I was unable to access the biliary tree with a conventional ERCP Recommendations ciprofloxacin for a total of 72 hours Patient may have clear liquids Patient to a tertiary care center for repeat attempt with ability of endoscopic ultrasound-guided access or PTC via radiology
--- NOTE | 2021-09-05 14:59 | GI REPORT ---
Patient Name: Michael Altamirano Procedure Date: 09/05/2021 1:52 PM Date of : 1945 Admit Type: Inpatient Age: 76 Gender: Male Attending MD: Casey Snyder DO Procedure: Upper EUS Providers: Casey Snyder DO Referring MD: Chrissie Welch Md, Leeroy Mendoza M.d. Indications: Suspected mass in liver on CT scan, Suspected mass in pancreas on CT scan Medicines: General Anesthesia Complications: No immediate complications. Estimated blood loss: Minimal. Estimated Blood Loss: Estimated blood loss was minimal. Estimated blood loss was minimal. Procedure: Pre-Anesthesia Assessment: - Prior to the procedure, a History and Physical was performed, and patient medications, allergies and sensitivities were reviewed. The patient's tolerance of previous anesthesia was reviewed. - The risks and benefits of the procedure and the sedation options and risks were discussed with the patient. All questions were answered and informed consent was obtained. - Patient identification and proposed procedure were verified prior to the procedure by the physician, the nurse and the sailing officer. The procedure was verified in the procedure room. - Pre-procedure physical examination revealed no contraindications to sedation. - ASA Grade Assessment: III - A patient with severe systemic disease. - After reviewing the risks and benefits, the patient was deemed in satisfactory condition to undergo the procedure. - The anesthesia plan was to use general anesthesia. - Immediately prior to administration of medications, the patient was re-assessed for adequacy to receive sedatives. - The heart rate, respiratory rate, oxygen saturations, blood pressure, adequacy of pulmonary ventilation, and response to care were monitored throughout the procedure. - The physical status of the patient was re-assessed after the procedure. After obtaining informed consent, the endoscope was passed under direct vision. Throughout the procedure, the patient's blood pressure, pulse, and oxygen saturations were monitored continuously. The Endosonoscope was introduced through the mouth, and advanced to the second part of duodenum. The upper EUS was accomplished without difficulty. The patient tolerated the procedure well. Findings: ENDOSONOGRAPHIC FINDING: : There was dilation in the common bile duct which measured up to 10 mm. An abrupt cutoff was seen in the distal CBD as it traversed the pancreatic head. A large irregular mass was identified in the pancreatic head. The mass was hypoechoic. The mass measured 38 mm by 36 mm in maximal cross-sectional diameter. The endosonographic borders were poorly-defined. There was sonographic evidence suggesting invasion into the portal vein (manifested by abutment) and the second portion of the duodenum (manifested by intraluminal growth). An intact interface was seen between the mass and the celiac trunk suggesting a lack of invasion. The remainder of the pancreas was examined. The endosonographic appearance of parenchyma and the upstream pancreatic duct indicated duct dilation. Multiple rounded lesions were identified endosonographically in the left lobe of the liver and in the right lobe of the liver. The endosonographic appearance was suggestive of metastases. The lesions were hypoechoic. The largest lesion measured 11 mm by 10 mm in maximal cross-sectional diameter. The endosonographic borders were well-defined. Fine needle aspiration for cytology was performed. Color Doppler imaging was utilized prior to needle puncture to confirm a lack of significant vascular structures within the needle path. Five passes were made with the 25 gauge ([employer] Pro-core) needle using a transgastric approach. A stylet was used. A cheese sprayer was present to evaluate the adequacy of the specimen. Final cytology results are pending. Estimated blood loss was minimal. Impression: - There was dilation in the common bile duct which measured up to 10 mm. - A mass was identified in the pancreatic head. This was staged T3 Nx M1 (based on metastasis to liver and pending cytologic confirmation). The staging applies if malignancy is confirmed. - Too numerous to count liver masses seen. Fine-needle aspiration performed from a mass in the left hepatic lobe. Recommendation: - Perform an ERCP today. Casey Snyder D.O. Casey Snyder, 09/05/2021 2:58:40 PM This report has been signed electronically. Note Initiated On: 09/05/2021 1:52 PM Number of Addenda: 0 I attest to the content of the Intraoperative Record and orders documented therein, exceptions below {[id number]}
--- NOTE | 2021-09-05 15:03 | GI REPORT ---
Patient Name: Michael Altamirano Procedure Date: 09/05/2021 2:14 PM Date of : 1945 Admit Type: Inpatient Age: 76 Gender: Male Attending MD: Casey Snyder DO Procedure: ERCP Providers: Casey Snyder DO Referring MD: Chrissie Welch Md, Leeroy Mendoza M.d. Indications: Elevated liver enzymes, Malignant tumor of the head of pancreas Medicines: General Anesthesia Complications: No immediate complications. Estimated blood loss: Minimal. Estimated Blood Loss: Estimated blood loss was minimal. Procedure: Pre-Anesthesia Assessment: - Prior to the procedure, a History and Physical was performed, and patient medications, allergies and sensitivities were reviewed. The patient's tolerance of previous anesthesia was reviewed. - The risks and benefits of the procedure and the sedation options and risks were discussed with the patient. All questions were answered and informed consent was obtained. - Patient identification and proposed procedure were verified prior to the procedure by the physician, the nurse and the aluminum can collector. The procedure was verified in the procedure room. - Pre-procedure physical examination revealed no contraindications to sedation. - ASA Grade Assessment: III - A patient with severe systemic disease. - After reviewing the risks and benefits, the patient was deemed in satisfactory condition to undergo the procedure. - The anesthesia plan was to use general anesthesia. - Immediately prior to administration of medications, the patient was re-assessed for adequacy to receive sedatives. - The heart rate, respiratory rate, oxygen saturations, blood pressure, adequacy of pulmonary ventilation, and response to care were monitored throughout the procedure. - The physical status of the patient was re-assessed after the procedure. After obtaining informed consent, the scope was passed under direct vision. Throughout the procedure, the patient's blood pressure, pulse, and oxygen saturations were monitored continuously. The Duodenoscope was introduced through the mouth, and advanced to the duodenum without successful cannulation. The ERCP was accomplished without difficulty. The patient tolerated the procedure well. Findings: The gravity flow irrigator film was normal. The esophagus was successfully intubated under direct vision without detailed examination of the pharynx, larynx, and associated structures, and upper GI tract. The upper GI tract was grossly normal. The major papilla was not found. The ampulla was located within an infiltrating mass arising from the pancreatic head. The mass was carefully probed using fluoroscopic guidance but no structure consistent with the ampulla nor common bile duct could be identified. Further attempts at biliary cannulation were discontinued. Impression: - The major papilla was not found. Recommendation: - Return patient to hospital wu for ongoing care. - Refer to [facility] at the next available appointment. -The may benefit from a repeat attempt and perhaps endoscopic ultrasound-guided access or interventional radiology access. Casey Snyder D.O. Casey Snyder, DO 09/05/2021 3:03:23 PM This report has been signed electronically. Note Initiated On: 09/05/2021 2:14 PM Number of Addenda: 0 I attest to the content of the Intraoperative Record and orders documented therein, exceptions below {[id number]}
--- NOTE | 2021-09-05 15:04 | Pharmacy Report ---
Pharmacy Glycemic Short Note 2 - Date of Service September 05, 2021 - Glycemic Short BSG Results (Last 24 hours): 09/04/21 09/04/21 09/05/21 17:10 20:41 05:37 Glucose POC Glucose 143 H 133 H 243 H 09/05/21 09/05/21 07:31 12:05 Glucose 179 H POC Glucose 206 H OUTPATIENT ANTIDIABETIC REGIMEN: * metformin 500 mg ER bid * A1c 13% - 09/03 ASSESSMENT: 09/05/21 * Patient's BSGs yesterday were 220-790-385-133 mg/dL and fasting today was 243 mg/dL. * Patient received 57 units of insulin yesterday (20 units of basal and 37 units of bolus). * Patient remains NPO today for ERCP. * Lantus 15 units SQ x 1 (give less Lantus than yesterday as patient's BSGs trended down yesterday). * Will remain aggressive with Novolog. Background * 76 year old male admitted due to abnormal labs/jaundice, elevated transaminases. CT scan confirms pancreatic head mass and concerns for metastatic disease within the liver * A1c 13% on admission, last A1c 10.7% 07/2021. Per previous notes from PCP visit 07/2021 patient with significant weight loss(30 lb loss in 8 weeks), has changed his lifestyle/diet, decreased carbs. PCP opted to not change therapy and had planned to repeat A1c as unclear for recent rise from previous A1c. * BSGs in 400-500s on admission, received total of 29 units of insulin yesterday, of which 10 units were basal * Fasting BSG 195 mg/dL - patient NPO for possible procedure, but then changed to diet later this AM. Now NPO at midnight tonight for ERCP tomorrow * Since patient eating, will start basal insulin at ~0.2 units/kg for today, c ontinue stress of 2 novolog for now. PLAN FOR INPATIENT GLYCEMIC CONTROL: * Hold outpatient oral diabetes medications * Basal insulin * Lantus 15 units x 1 * Bolus insulin * NovoLog per scale ACHS or Q6hrs while NPO * Goal Range: Low 110 mg/dL - High 140 mg/dL * Correction Factor: 20 mg/dL/unit * Nutritional / Prandial insulin per carb ratio of 1 unit per 7 grams CHO consumed
--- NOTE | 2021-09-05 15:31 | Fluoroscopy Report ---
[place] ERCP biliary ductal HISTORY: 76 years-old Male ERCP IN OR pancreatic head mass. COMPARISON: CT abdomen and pelvis 09/03/2021 TECHNIQUE: One spot fluoroscopic image of the abdomen was obtained utilizing 65.4 seconds fluoroscopy time FINDINGS: Endoscope is noted within the duodenum. A guidewire is noted which may be within the distal common bi le duct. No additional images were submitted. IMPRESSION: Fluoroscopic assistance as above. ACT 112: Negative or not required by law. The above report was generated using voice recognition software. It may contain grammatical, syntax o r spelling errors. Electronically signed by: Aaron Gomez M.D. 09/05/2021 3:30 PM
--- NOTE | 2021-09-05 15:34 | Operative Report ---
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 Failed biliary cannulation due to infiltrating mass. I identified the patient and participated in the time-out.: Yes Procedure Operation Date: 09/05/21 12:30 Actual Procedures p Endoscopic Ultrasound, Endoscopic Retrograde Cholangiopancreatography(Not Applicable) - Casey Snyder DO s Infusaport Insertion(Left) - Dany Ybarra DO Surgeon Dany Ybarra, Apartment Community Manager none Estimated Blood Loss 5 Findings Consistent with Post-Op Diagnosis Specimens none Description of Procedure After informed consent was obtained the patient was taken the operating room placed in supine position. The patient was already intubated from an ERCP procedure just prior to mine. Both arms were then tucked. The upper chest area was sterilely prepped and draped in usual fashion. I began by making a horizontal incision just inferior and lateral to the angle of the left clavicle. I carried this down through the soft tissue using electrocautery to the pectoralis fascia. I then used blunt finger dissection to create a small pocket. I then used an 18-gauge finder needle to access the subclavian vein without difficulty. A guidewire was advanced under fluoroscopy into the superior vena cava. We then measured and cut the catheter to appropriate size and then thoroughly flushed the entire system with a heparin solution. Next we advanced a vascular dilator with peel-away sheath over the guidewire again using fluoroscopy. We then pulled out the dilator as well as the guidewire leaving the peel-away sheath in place. The catheter was advanced through the peel-away sheath and the port itself was placed into the housing pocket. We then peeled the sheath away leaving the catheter. We verified position using fluoroscopy. The catheter was then flushed with heparin solution. It withdrew dark venous blood easily. The port was then secured to the muscle using 0 Ethibond with 3 point fixation. The wound was thoroughly irrigated and closed in 2 layers using 3-0 Monocryl for both layers. A sterile dressing was applied. The patient was awakened and transferred to recovery in stable condition. A postoperative portable chest x-ray is currently pending to rule out pneumothorax and the verify catheter position. I attest to the content of the Intraoperative Record and any orders documented therein. Any exceptions are noted below. I attest to the content of the Intraoperative Record and any orders documented therein. Any exceptions are noted below.
--- NOTE | 2021-09-05 15:38 | Hospitalist Progress Note ---
Date of Service September 05, 2021 Assessment & Plan (1) Pancreatic mass: Plan: 76-year-old WM with PMHx IFG and HLD presented to the ED given abnormal labs obtained by PCP given jaundiced x 1 week, epigastric pain x 3 months and 55lb weight loss over 3 months. - LFTs elevated and radiographic evidence of pancreatic head mass and intraductal obstruction - lipase WNL - CT showing concern for hepatic metastatic spread - GI consulted. Patient underwent attempted ERCP with stenting but unfortunately this was unsuccessful. Mass was infiltrating the duodenum making the ampulla impossible to access. - GI is recommending transfer to tertiary center for endoscopic or in terventional radiology approach - likely pancreatic CA with mets to liver, consulted Oncology-- appreciate assistance. Fine-needle aspiration for tissue sampling was obtained today. Pathology pending - spoke with Dr. Vargas (oncology) who recommends CT of the chest and CA 19-9 to help with staging and guiding treatment. CT of the chest shows no evidence of metastasis. CA 19-9 is elevated at 1868 - General Surgery consulted Mediport insertion-this was successful today-- appreciate assistance. -Unfortunately, ERCP showed a very large pancreatic mass with numerous liver metastases. His treatment options are likely limited. At the very least, advising transfer to a tertiary center where he can perhaps have an endoscopic approach for stenting to help with palliative care. -Lengthy discussion with patient and his that treatment options seem limited at this point. Even with chemotherapy, this may not prolong his life. He is aware and uncertain if he wants to spend his last days and during chemotherapy and being sick. (2) Elevated LFTs: Plan: - TB: 8.5, AST: 208, ALT:314 given obstructing mass - lipase WNL - ERCP with stenting attempted but unsuccessful (3) Hepatic metastases: Plan: - given concern for hepatic mets, uncertain if this excludes him from being a candidate for a Whipple procedure - established with Oncology. Will need staging and FU - At this time, recommendations by GI are for referral to tertiary center for endoscopic approach at stenting. Can see oncology/GI and determine what treatment options if any are available. (4) Hyperglycemia: Plan: - presenting BS of 582 - pt with IFG prior to this hospitalization - A1C: 13.0 consistent with DM - pancreatic mass likely big contributing factor - now on lantus/log - monitor BS - clinical nurse educator consulted-- appreciate assistance - continue to monitor - BS today= 195 (5) Hypokalemia: Plan: - supplement (6) Diabetes mellitus: Plan: - A1C 13.0-- see above (7) Hyperlipidemia: Plan: - h/o - hold all statins given elevated LFTs Plan: Plan of care discussed in great detail with patient, his , and his daughter at bedside. see discharge summary Admission and Anticipated Discharge Date Admission Date: September 03, 2021 Subjective Patient seen on daily rounds today. Still with mild abd pain (slightly worse today). Denies N/V. The severity of the ongoing issues has hit him and he has been tearful off and on. Was for ERCP today. Stenting was attempted but unsuccessful as the mass was infiltrating the duodenum. The ampulla could not be accessed. FNA of the mass was obtained. Did have successful insertion of a Mediport. Seen this am prior to procedure. Have since followed-up with his and Daughter. He remains in the OR and is not yet in recovery to discuss options. GI recommended transfer to tertiary center for EUS approach or IR approach. uncertain if patient will want to endure this. Review of Systems Review of Systems: All systems reviewed and are unremarkable except as noted in HPI and below Denies fevers, chills, headache, nasal congestion, sore throat, cough, chest pain, shortness of breath, palpitations, orthopnea, PND, nausea, vomiting, diarrhea, constipation, dysuria, hematuria, frequency, back pain, joint pain or swelling, easy bruising or bleeding Physical Exam Physical Exam: General: Resting comfortably in his hospital bed. Surprisingly, not overtly jaundiced. NAD. HEENT: Head is AT/NC. Buccal mucosa is moist and pink. Mild scleral icterus Neck: No JVD. Negative hepatojugular reflex Cardiac: RRR with 2/6 BARNEY Lungs: CTA without W/R/R Abdomen: Normoactive X4. Abdomen soft with mild epigastric tenderness Extremities: No peripheral clubbing cyanosis or edema Neuro: A&O X4. Cranial nerves II through XII are grossly intact. No focal neuro deficits Skin: No obvious skin lesions or rashes Psych: Appropriate affect. Pleasant and cooperative Results & Data Results & Data ([facility]) Vital Signs (Past 12 Hours) Vital Signs Temp Pulse Resp BP Pulse Ox 09/05/21 12:45 36.9 C 70 18 139/87 97 09/05/21 07:14 36.6 C 75 18 145/69 H 93 Laboratory Results 09/03/21 16:22 09/05/21 07:31 PG Care Time/CCT Total # of Minutes Spent Total Time Spent with Patient: Total time spent is greater than 50% in coordination of care (as documented) at patient's floor/unit and/or counseling patient: Coding Level of Care Code None Diagnoses Pancreatic mass K86.89 Elevated LFTs R79.89 Hepatic metastases C78.7 Hyperglycemia R73.9 Hypokalemia E87.6 Diabetes mellitus E11.9 Hyperlipidemia E78.5
--- NOTE | 2021-09-05 16:00 | XRay Report ---
XR chest 1V portable CLINICAL HISTORY: port placement. COMPARISON STUDY: 10/24/2010 TECHNIQUE: 1 view of the chest FINDINGS: Single frontal view of the chest demonstrates the heart size to be accentuated by decreased inspirato ry effort. A port has been placed via a left subclavian approach. Its tip is in the mid SVC. There is a decreased inspiratory effort with elevation of the hemidiaphragms and crowding of the bron chovascular markings at the lung bases and centrally. There is no evidence for pneumothorax. The lung s are clear of alveolar opacities. There is no evidence for pleural effusion. There is no evidence fo r vascular congestion. There is no acute osseous pathology. IMPRESSION: 1. No acute cardiopulmonary disease. 2. Status post port placement. ACT 112: Negative or not required by law. Electronically signed by: Poli Herrera M.D. 09/05/2021 3:59 PM
--- NOTE | 2021-09-05 16:10 | Anesthesiology Progress Note ---
Date of Service September 05, 2021 Anesthesia Post Procedure Vital Signs Vital Signs: Temp Pulse Resp BP Pulse Ox 09/05/21 16:00 97.5 F L 65 16 134/70 96 09/05/21 15:50 68 18 127/70 96 09/05/21 15:40 74 18 122/62 97 09/05/21 15:31 97.5 F L 72 18 121/66 97 09/05/21 12:45 98.4 F 70 18 139/87 97 09/05/21 07:14 97.9 F 75 18 145/69 H 93 09/04/21 22:00 98.1 F 68 18 120/67 93 Pain Intensity Abdomen: Pain Intensity: 4 Transfer of Care Handoff Completed per policy Notes Mental Status: alert / awake / arousable and participated in evaluation Patient Amnestic to Procedure: Yes Nausea / Vomiting: adequately controlled Pain: adequately controlled Airway Patency, RR, SpO2: stable & adequate BP & HR: stable & adequate Hydration State: stable & adequate Anesthetic Complications: no major complications apparent and Pt Satisfied with anesthetic care
--- NOTE | 2021-09-05 17:05 | Discharge Summary ---
Date of Service September 05, 2021 Admission HPI Per Admitting Provider Patient sent into the emergency department due to abnormal labs including evidence of jaundice. She has had some epigastric pain which they were treating to meloxicam. Patient's labs also significant elevation of his transaminases to AST 208 ALT 314 alkaline phosphatase 573. His total bilirubin is 8.5. We have not yet fractionated. He is markedly hyperglycemic and although typically only having control metformin his glucoses are in the 4-500 range and A1c performed during his ER visit today is 13.0. Unfortunately CT scan confirms a pancreatic head mass with some dilatation of the pancreatic ducts and also intrahepatic and extrahepatic biliary ductal dilatation there is also dilatation of the pancreatic duct and concern for metastatic disease within the liver Patiently brought in for evaluation by gastroenterology whether any stenting would benefit this patient given his marked elevation of bilirubin. We will fractionate the bilirubin. We will offer attempts to try to perform diagnostic modalities with this patient. In addition we will control his markedly elevated blood glucose. Covid is negative on presentation Principal Diagnosis 1. Pancreatic Mass with Hepatic Metastasis 2. Abnormal LFT's 3. Biliary obstruction d/t pancreatic mass 4. Jaundice 5. Hyperglycemia- likely 2/2 pancreatic mass Discharge Exam General: Resting comfortably in his hospital bed. NAD. HEENT: Head is AT/NC. Buccal mucosa is moist and pink. Mild scleral icterus Neck: No JVD. Negative hepatojugular reflex Cardiac: RRR with 2/6 BARNEY Lungs: CTA without W/R/R Abdomen: Normoactive X4. Abdomen soft with mild epigastric tenderness Extremities: No peripheral clubbing cyanosis or edema Neuro: A&O X4. Cranial nerves II through XII are grossly intact. No focal neuro deficits Skin: Jaundiced Psych: Appropriate affect. Pleasant and cooperative Discharge Data Allergies Allergy/AdvReac Type Severity Reaction Status Date / Time No Known Allergies Allergy Verified 09/03/21 16:25 Consultations 09/03/21 18:00 ED Decision to Admit Stat 09/03/21 21:03 Consult Gastroenterology Routine 09/04/21 10:04 Consult Oncology Routine 09/04/21 10:42 Consult General Surgery Routine Procedures Performed Operation Date: 09/05/21 12:30 Actual Procedures p Endoscopic Ultrasound, Endoscopic Retrograde Cholangiopancreatography(Not Applicable) - Casey Snyder DO s Infusaport Insertion(Left) - Dany Ybarra DO Ordered Studies 09/03/21 16:11 CT abd pelvis IV con only Stat IMPRESSION: 1. There is a low-attenuation infiltrative mass lesion suggested in the pancreatic head/uncinate as detailed above with evidence of multifocal hepatic metastatic disease. Metastatic pancreatic adenocarcinoma is the diagnosis of exclusion. GI follow-up is recommended. 2. There is mild to moderate intrahepatic biliary ductal dilatation. 3. There is upstream dilatation of the pancreatic duct, with mild peripancreatic infiltration and fluid. Correlate with clinical findings and laboratory studies for evidence of superimposed acute pancreatitis. 4. No organized peripancreatic fluid collection is identified. 5. The liver is enlarged and mildly steatotic. 6. Left-sided nephrolithiasis. 7. Additional findings as above. 09/04/21 08:01 US upper EUS PACS images Routine Impression: - There was dilation in the common bile duct which measured up to 10 mm. - A mass was identified in the pancreatic head. This was staged T3 Nx M1 (based on metastasis to liver and pending cytologic confirmation). The staging applies if malignancy is confirmed. - Too numerous to count liver masses seen. Fine-needle aspiration performed from a mass in the left hepatic lobe. 09/04/21 10:42 CT chest diagnostic w con Routine IMPRESSION: 1. There is no evidence of intrathoracic metastatic disease. 2. There is no airspace consolidation or pleural effusion. 3. Multifocal hepatic metastatic disease is again noted and there is infiltration around the pancreatic tail. See report of abdominal CT dated 09/03/2021 for detailed intra-abdominal findings. 4. Cardiomegaly. 5. Additional findings as above. 09/05/21 12:30 FL ERCP biliary ductal Routine FL fluoro (infusaport) to 1 hr Routine Impression: - The major papilla was not found. Recommendation: - Return patient to hospital wu for ongoing care. - Refer to Tertiary Center at the next available appointment. -The may benefit from a repeat attempt and perhaps endoscopic ultrasound-guided access or interventional radiology access. 09/05/21 13:36 US upper EUS PACS images Routine Hospital Course (1) Pancreatic mass: 76-year-old WM with PMHx IFG and HLD presented to the ED given abnormal labs obtained by PCP given jaundiced x 1 week, epigastric pain x 3 months and 55lb weight loss over 3 months. - LFTs elevated and radiographic evidence of pancreatic head mass and intraductal obstruction - lipase WNL - CT showing concern for hepatic metastatic spread - GI consulted. Patient underwent attempted ERCP with stenting but unfortunately this was unsuccessful. Mass was infiltrating the duodenum making the ampulla impossible to access. - GI is recommending transfer to tertiary center for endoscopic or interventional radiology approach. Spoke with patient and his and daughter and they are agreeable - likely pancreatic CA with mets to liver, consulted Oncology-- appreciate assistance. Fine-needle aspiration for tissue sampling was obtained today. Pathology pending - spoke with Dr. Vargas (oncology) who recommends CT of the chest and CA 19-9 to help with staging and guiding treatment. CT of the chest shows no evidence of metastasis. CA 19-9 is elevated at 1868 - General Surgery consulted Mediport insertion-this was successful today-- appreciate assistance. -Unfortunately, ERCP showed a very large pancreatic mass with numerous liver metastases. His treatment options are likely limited. At the very least, advising transfer to a tertiary center where he can perhaps have an endoscopic approach for stenting to help with palliative care. -Lengthy discussion with patient and his that treatment options seem limited at this point. Even with chemotherapy, this may not prolong his life and if it does- uncertain what quality of life he will have. He is aware and uncertain if he wants to spend his last days and during chemotherapy and being sick. He is agreeable to going [place] [facility] [place]/IR approach at biliary stent insertion and to talk with pancreatic oncologist to discuss what (if any) options are available at this time (2) Elevated LFTs: - TB: 8.5, AST: 208, ALT:314 given obstructing mass - lipase WNL - ERCP with stenting attempted but unsuccessful transfer to tertiary center (3) Hepatic metastases: - given concern for hepatic mets, uncertain if this excludes him from being a candidate for a Whipple procedure - established with Oncology. Will need staging and FU - At this time, recommendations by GI are for referral to tertiary center for e ndoscopic approach at stenting. Can see oncology/GI and determine what treatment options if any are available. Unfortunately, I think the only treatment options will be palliative (4) Hyperglycemia: - presenting BS of 582 - pt with IFG prior to this hospitalization - A1C: 13.0 consistent with DM - pancreatic mass likely big contributing factor - now on lantus/log - monitor BS - director education consulted-- appreciate assistance - continue to monitor - BS today= 195 (5) Hypokalemia: - supplemented (6) Diabetes mellitus: - A1C 13.0-- see above (7) Hyperlipidemia: - h/o - hold all statins given elevated LFTs Plan of care discussed in great detail with patient, his , and his daughter at bedside. I have asked for radiology to burn all imaging onto a disc Total Time Total Time Spent Total Time Spent (In Minutes): 90 minutes including time spent with patient, time spent with family, coordination of care, calling [facility], discussion with specialist, and preparation of documentation Discharge Plan Discharge Items Patient Disposition: Transfer Acute Care Hospital Reason For Visit: PANCREATIC MASS, ELEV BILI, UNCONTROLLED DIABETES Discharge Diagnosis: 1. Pancreatic Mass with Hepatic Metastasis 2. Abnormal LFT's 3. Biliary obstruction d/t pancreatic mass 4. Jaundice 5. Hyperglycemia- likely 2/2 pancreatic mass Activity: Per Instructions section Lifting: No more than 25 pounds Lifting Comment: for a few days Bathing Comment: no soaking in tubs/pools Non-emergency contact: Primary Care Provider, Specialist, Facility Engineer and Oncologist Call non-emergency contact if: you have any medication questions, your pain is not controlled, your pain is concerning for you, you have a fever, your temperature is above 101.5, your wound has increased redness, your wound has increased drainage and your wound pain has increased Follow-up/Referrals: Dany Ybarra, [Surgeon] - (Please call to schedule follow up in clinic within 2 weeks) Chrissie Welch MD [Primary Care Provider] - She Vargas MD [Physician] - Diet: Carb Consistent or DM2 Addtl Attending Provider Instructions: Your Mediport may be used as early as today Pending Studies at Discharge: Yes Studies:: FNA pathology from Pancreatic Mass Stand-Alone Forms: My [facility] [employer] Skilled Items Patient informed of condition?: Yes DNR: No Discharge Level of Care: Other Communicable Disease: No Discharge Prognosis: Stable Lines: Peripheral IV Urinary Catheter: No Medications and DC Order Prescriptions: New Lantus Solostar U-100 Insulin 100 unit/mL (3 mL) insulin pen 14 unit subcut PM Qty: 15 RF: 0 Continued metformin 500 mg tablet extended release 24 hr 500 mg PO BID Qty: 60 RF: 5 testosterone 4 mg/24 hr patch 24 hour 1 patch TD HS Qty: 30 RF: 5 omega-3 fatty acids [Fish Oil Concentrate] 1,000 mg capsule 2,000 mg PO HS RF: 0 Discontinued acetaminophen [Tylenol Arthritis Pain] 650 mg tablet extended release 650 mg PO DAILY PRN (Reason: Pain) RF: 0 atorvastatin 20 mg tablet 20 mg PO DAILY Qty: 90 RF: 3 ascorbic acid (vitamin C) [Vitamin C] 500 mg tablet 500 mg PO HS RF: 0 cholecalciferol (vitamin D3) [Vitamin D3] 25 mcg (1,000 unit) capsule 25 mcg PO HS RF: 0 azelastine 137 mcg (0.1 %) aerosol,spray 1 spray intranasal BID PRN (Reason: as directed) RF: 0 Discharge Orders: Discharge Order (Routine); Ordered 09/05/21 Ordered By: Cordelia Zhou Admission Data Admit Date/Time: 09/03/21 18:34 Attending Provider: Leeroy Mendoza Admit Provider: Jay Smith Primary Care Provider: Chrissie Welch Other Providers: Jay Smith ; Casey Snyder ; She Vargas ; Phong Carlton Other Interventions: Discharge Summary Assessment (RN) Last Done: 09/05/21 19:15 Coding Level of Care Code D/C DAY MANAGEMENT >30 MINS Diagnoses Pancreatic mass K86.89 Elevated LFTs R79.89 Hepatic metastases C78.7 Hyperglycemia R73.9 Hypokalemia E87.6 Diabetes mellitus E11.9 Hyperlipidemia E78.5
[2021-09-05] MEDS ORDERED: INSULIN ASPART PER UNIT SC SCH (17:15)
[2021-09-05] MEDS ORDERED: Nursing to Pharmacy Communication SCH (17:15)
== END 2021-09-05 20:28 | disposition short-term general hospital (02) | DRG 420 ==
LOC: ED 15:40 → 3N 18:34 → SUATTDRO 18:34 → 3N 20:41